=== PATIENT | female | born 1950 | race Caucasian/White ===

== ENCOUNTER → 2017-12-01 09:43 | Outpatient (CLI) | payer MEDICARE, BC, SELFPAY ==
[2017-12-01 12:13] LABS: Absolute Lymphocyte Count 1.19 X10^3/ul (0.83-4.51); Absolute Neutrophil Count 3.2 X10^3/uL (2.0-7.7); Basophil# 0.05 X10^3/uL; Eosinophil# 0.21 X10^3/uL; Eosinophils% 4.2 % (0-5); Hematocrit 40.3 % (37-47); Hemoglobin 12.9 g/dl (12.0-15.0); Lymphocyte # 1.19 X10^3/ul (4.0); Lymphocyte % 23.8 % (19-41); Mean Corpuscular Hgb 28.6 pg (27.0-32.0); Mean Corpuscular Volume 89.4 fL (81-99); Mean Platelet Vol. 13.1 fl (6.2-12.0); Monocyte# 0.33 X10^3/uL; Monocyte% 6.6 % (0-10); Neutrophil % 64.2 % (47-70); Platelet Count 204 K/mm3 (150-450); RBC Distribution Width CV 12.7 % (11.6-14.6); RBC Distribution Width SD 41.1 fl (35.1-43.9); Red Blood Count 4.51 M/mm3 (4.2-5.4)
[2017-12-01 12:17] LABS: POSITIVE COUNT NO; POSITIVE DIFFERENTIAL NO; POSITIVE MORPHOLOGY NO
[2017-12-01 12:46] LABS: Anion Gap 10 (5-15); BUN 23 mg/dL (7-18); BUN/Creat Ratio 13.9 RATIO (10-20); Calcium,Total 9.1 mg/dL (8.5-10.1); Chloride 107 mmol/L (98-107); Creatinine, Serum 1.65 mg/dL (0.55-1.02); EST Glomerular Filtration Rate 33 mL/min (>60); Est Glom Filt Rate - Afr Amer 40 mL/min (>60); Glucose 134 mg/dL (74-106); Potassium 4.6 mmol/L (3.5-5.1); Sodium Level 142 mmol/L (136-145); T4 Free Direct 1.36 ng/dL (0.76-1.46)
[2017-12-02 08:45] LABS: Hep C Antibodies <0.1 s/co ratio (0.0-0.9)
== END ==
PROVIDERS: Family Provider Family Medicine; PCP Family Medicine; Visit Provider Family Medicine
DX: E03.9 Hypothyroidism, unspecified (principal); E11.9 Type 2 diabetes mellitus without complications; N18.3 Chronic kidney disease, stage 3 (moderate); Z11.59 Encounter for screening for other viral diseases
CPT/HCPCS: 36415; 80048; 84439; 84443; 85025; 86803

== ENCOUNTER → 2018-05-27 14:14 | Outpatient (CLI) | payer MEDICARE, BC, SELFPAY ==
[2018-05-27 15:50] LABS: Anion Gap 9 (5-15); BUN 21 mg/dL (7-18); BUN/Creat Ratio 16.3 RATIO (10-20); Calcium,Total 9.2 mg/dL (8.5-10.1); Chloride 104 mmol/L (98-107); Creatinine, Serum 1.29 mg/dL (0.55-1.02); EST Glomerular Filtration Rate 44 mL/min (>60); Est Glom Filt Rate - Afr Amer 53 mL/min (>60); Glucose 214 mg/dL (74-106); Potassium 4.5 mmol/L (3.5-5.1); Sodium Level 138 mmol/L (136-145)
== END ==
PROVIDERS: Family Provider Family Medicine; PCP Family Medicine; Referring Provider Family Medicine; Visit Provider Family Medicine
DX: N18.3 Chronic kidney disease, stage 3 (moderate) (principal)
CPT/HCPCS: 36415; 80048

== ENCOUNTER → 2018-12-13 | Outpatient (CLI) | payer MEDICARE, BC, SELFPAY ==
[2018-12-13 12:49] LABS: Anion Gap 9 (5-15); BUN 19 mg/dL (7-18); BUN/Creat Ratio 13.3 RATIO (10-20); Chloride 107 mmol/L (98-107); Creatinine, Serum 1.43 mg/dL (0.55-1.02); EST Glomerular Filtration Rate 39 mL/min (>60); Est Glom Filt Rate - Afr Amer 47 mL/min (>60); Glucose 149 mg/dL (74-106); Potassium 4.2 mmol/L (3.5-5.1); Sodium Level 142 mmol/L (136-145); Thyroid Stim Hormone (TSH) 0.46 uIU/mL (0.358-3.74)
== END | disposition home or self-care (01) ==
LOC: BFHLAB 09:30
PROVIDERS: Family Provider Family Medicine; PCP Family Medicine; Visit Provider Family Medicine
DX: E11.65 Type 2 diabetes mellitus with hyperglycemia (principal); N18.3 Chronic kidney disease, stage 3 (moderate); E03.9 Hypothyroidism, unspecified
CPT/HCPCS: 36415; 80048; 84443

== ENCOUNTER → 2019-03-14 | Outpatient (CLI) | payer MEDICARE, BC, SELFPAY ==
[2019-03-14 15:32] LABS: Absolute Lymphocyte Count 1.42 X10^3/uL (0.83-4.51); Absolute Neutrophil Count 3.7 X10^3/uL (2.0-7.7); Basophil# 0.05 X10^3/uL; Basophil% 0.9 % (0-1); Eosinophil# 0.11 X10^3/uL; Eosinophils% 1.9 % (0-5); Hematocrit 40.6 % (37-47); Hemoglobin 13.3 g/dL (12.0-15.0); Lymphocyte # 1.42 X10^3/ul (4.0); Mean Corp Hgb Conc 32.8 g/dL (32-36); Mean Corpuscular Hgb 29.7 pg (27.0-32.0); Mean Corpuscular Volume 90.6 fL (81-99); Mean Platelet Vol. 12.7 fl (6.2-12.0); Monocyte# 0.41 X10^3/uL; Monocyte% 7.2 % (0-10); NRBC Flagged by Analyzer 0 % (0-5); Neutrophil # 3.67 X10^3/uL (2.7-7.7); Neutrophil % 64.8 % (47-70); Platelet Count 188 K/mm3 (150-450); RBC Distribution Width CV 11.9 % (11.6-14.6); RBC Distribution Width SD 39.5 fl (35.1-43.9); Red Blood Count 4.48 M/mm3 (4.2-5.4); White Blood Count 5.7 K/mm3 (4.4-11.0)
[2019-03-14 15:51] LABS: Vitamin B12 390 pg/mL (211-911)
[2019-03-14 15:54] LABS: ALB/GLOB Ratio 0.9 RATIO (0.9-2.4); AST(SGOT) 26 U/L (15-37); Alanine Aminotransfer ALT/SGPT 27 U/L (13-56); Albumin, Serum 3.6 g/dL (3.2-5.0); Alkaline Phosphatase 115 U/L (45-117); Anion Gap 8 (5-15); BUN 32 mg/dL (7-18); BUN/Creat Ratio 20.4 RATIO (10-20); Calcium,Total 9.4 mg/dL (8.5-10.1); Chloride 106 mmol/L (98-107); Creatinine, Serum 1.57 mg/dL (0.55-1.02); EST Glomerular Filtration Rate 35 mL/min (>60); Est Glom Filt Rate - Afr Amer 42 mL/min (>60); Globulin 3.8 g/dL (2.2-4.2); Glucose 204 mg/dL (74-106); Potassium 4.8 mmol/L (3.5-5.1); Protein, Total 7.4 g/dL (6.4-8.2); Sodium Level 140 mmol/L (136-145); T4 Free Direct 1.52 ng/dL (0.76-1.46); Thyroid Stim Hormone (TSH) 0.11 uIU/mL (0.358-3.74)
== END | disposition home or self-care (01) ==
LOC: BFHLAB 13:43
PROVIDERS: Family Provider Family Medicine; PCP Family Medicine; Visit Provider Family Medicine
DX: E11.65 Type 2 diabetes mellitus with hyperglycemia (principal); E03.9 Hypothyroidism, unspecified; R41.89 Other symptoms and signs involving cognitive functions and awareness
CPT/HCPCS: 36415; 80053; 82607; 84439; 84443; 85025

== ENCOUNTER → 2020-10-11 09:38 | Outpatient (CLI) | payer MEDICARE, BC, SELFPAY ==
[2020-10-11 12:49] LABS: Absolute Lymphocyte Count 1.11 X10^3/uL (0.83-4.51); Absolute Neutrophil Count 3.4 X10^3/uL (2.0-7.7); Basophil# 0.05 X10^3/uL; Eosinophil# 0.08 X10^3/uL; Eosinophils% 1.6 % (0-5); Hematocrit 43.6 % (37-47); Hemoglobin 13.5 g/dL (12.0-15.0); Lymphocyte # 1.11 X10^3/ul (4.0); Mean Corpuscular Hgb 28.5 pg (27.0-32.0); Mean Corpuscular Volume 92.2 fL (81-99); Mean Platelet Vol. 12.8 fl (6.2-12.0); Monocyte# 0.36 X10^3/uL; Monocyte% 7.1 % (0-10); NRBC Flagged by Analyzer 0 % (0-5); Neutrophil # 3.44 X10^3/uL (2.7-7.7); Neutrophil % 68.1 % (47-70); Platelet Count 202 K/mm3 (150-450); RBC Distribution Width CV 12.7 % (11.6-14.6); RBC Distribution Width SD 42.7 fl (35.1-43.9); Red Blood Count 4.73 M/mm3 (4.2-5.4); White Blood Count 5.1 K/mm3 (4.4-11.0)
[2020-10-11 13:33] LABS: ALB/GLOB Ratio 0.9 RATIO (0.9-2.4); AST(SGOT) 22 U/L (15-37); Alanine Aminotransfer ALT/SGPT 22 U/L (13-56); Albumin, Serum 3.7 g/dL (3.2-5.0); Alkaline Phosphatase 107 U/L (45-117); Anion Gap 7 (5-15); BUN 15 mg/dL (7-18); BUN/Creat Ratio 9.9 RATIO (10-20); Calcium,Total 9.2 mg/dL (8.5-10.1); Chloride 106 mmol/L (98-107); Cholesterol 160 mg/dL (200); Creatinine, Serum 1.51 mg/dL (0.55-1.02); EST Glomerular Filtration Rate 36 mL/min (>60); Est Glom Filt Rate - Afr Amer 44 mL/min (>60); Globulin 3.9 g/dL (2.2-4.2); Glucose 142 mg/dL (74-106); High Density Lipoprotein 48 mg/dL; Potassium 4.2 mmol/L (3.5-5.1); Protein, Total 7.6 g/dL (6.4-8.2); Sodium Level 140 mmol/L (136-145); T4 Free Direct 1.46 ng/dL (0.76-1.46); Thyroid Stim Hormone (TSH) 1.99 uIU/mL (0.358-3.74); Triglycerides 171 mg/dL; Very Low Density Lipoprotein 34 mg/dL (5-40)
== END ==
PROVIDERS: PCP Family Medicine; Visit Provider Family Medicine
DX: E11.65 Type 2 diabetes mellitus with hyperglycemia (principal); E11.22 Type 2 diabetes mellitus with diabetic chronic kidney disease; I12.9 Hypertensive chronic kidney disease with stage 1 through stage 4 chronic kidney disease, or unspecified chronic kidney disease; N18.30 Chronic kidney disease, stage 3 unspecified
CPT/HCPCS: 36415; 80053; 80061; 84439; 84443; 85025

== ENCOUNTER 2021-07-24 17:30 | Observation (INO) | payer MEDICARE, BC, SELFPAY ==
[2021-07-24] VITALS (10 sets, daily range): BP systolic 117–208; BP diastolic 70–98; PULSE 56–77; RESP 12–20; TEMP 36.4–37.1; O2SAT 95–100; BMI 31.8; BMI 33.0; BMI 33.1
--- NOTE | 2021-07-24 17:47 | EKG12_ITS ---
Test Reason : NEURO Blood Pressure : / mmHG Vent. Rate : 065 BPM Atrial Rate : 065 BPM P-R Int : 158 ms QRS Dur : 080 ms QT Int : 418 ms P-R-T Axes : 040 010 029 degrees QTc Int : 434 ms Normal sinus rhythm Normal ECG Confirmed by WILLY NAGY, LUIZ ([id number]), food editor BARB FREEMAN ([id number]) on 07/25/2021 11:39:07 AM Referred By: SATINDER Confirmed By:LUIZ AGUILERA MD
--- NOTE | 2021-07-24 17:54 | CT_ITS ---
STUDY: CT BRAIN WITHOUT CONTRAST REASON FOR EXAM: Female, 71 years old. Technologist Notes Other, DYSARHRIA 2-3 MINS HX:HTN,DIABETES NEURO S/S TECHNIQUE: Transaxial CT imaging of the brain was performed without administration of intravenous contrast material. Individualized dose optimization techniques were used for this CT. COMPARISON: None FINDINGS: Normal calvarium. Normal soft tissues. There are right basal ganglia old infarcts. There is mild cerebral atrophy with widening of the extra-axial spaces and ventricular dilatation. There are areas of decreased attenuation within the white matter tracts of the supratentorial brain, consistent with microvascular disease changes. Normal brainstem. Normal cerebellum. There is no intracranial hemorrhage. There are no findings of an acute ischemic infarction. Normal visualized paranasal sinuses. ASPECTS 10 CT/Brain/Head without Contrast IMPRESSION: There are no acute intracranial findings. Electronically Signed: Jonnathan Serna MD at 18:32 EST , Service support ,
[2021-07-24 18:04] LABS: Absolute Lymphocyte Count 1.96 X10^3/uL (0.83-4.51); Absolute Neutrophil Count 3.2 X10^3/uL (2.0-7.7); Basophil# 0.05 X10^3/uL; Basophil% 0.9 % (0-1); Eosinophil# 0.19 X10^3/uL; Eosinophils% 3.2 % (0-5); Hematocrit 42.6 % (37-47); Hemoglobin 13.9 g/dL (12.0-15.0); Lymphocyte # 1.96 X10^3/ul (0.83-4.51); Lymphocyte % 33.3 % (19-41); Mean Corp Hgb Conc 32.6 g/dL (32-36); Mean Corpuscular Volume 88.9 fL (81-99); Mean Platelet Vol. 12.3 fl (6.2-12.0); Monocyte# 0.44 X10^3/uL; Monocyte% 7.5 % (0-10); NRBC Flagged by Analyzer 0 % (0-5); Neutrophil # 3.22 X10^3/uL (2.7-7.7); Neutrophil % 54.8 % (47-70); Platelet Count 200 K/mm3 (150-450); RBC Distribution Width CV 12.1 % (11.6-14.6); RBC Distribution Width SD 39.7 fl (35.1-43.9); Red Blood Count 4.79 M/mm3 (4.2-5.4); White Blood Count 5.9 K/mm3 (4.4-11.0)
[2021-07-24 18:10] LABS: International Normalized Ratio 0.9; Prothrombin Time (Protime)PT. 11.7 SECONDS (11.7-14.9)
[2021-07-24 18:11] LABS: Partial Thromboplast Time 29.2 Seconds (24.1-36.2)
[2021-07-24 18:13] LABS: Anion Gap 6 (5-15); BUN 17 mg/dL (7-18); BUN/Creat Ratio 12.7 RATIO (10-20); Calcium,Total 9.6 mg/dL (8.5-10.1); Chloride 106 mmol/L (98-107); Creatinine, Serum 1.34 mg/dL (0.55-1.02); EST Glomerular Filtration Rate 42 mL/min (>60); Est Glom Filt Rate - Afr Amer 50 mL/min (>60); Estimated Creatinine Clearance 32.78 ml/min; Glucose 99 mg/dL (74-106); Potassium 3.9 mmol/L (3.5-5.1); Sodium Level 141 mmol/L (136-145)
--- NOTE | 2021-07-24 18:38 | ED.VIS.STROK ---
HPI History of Present Illness Chief Complaint: Neuro S/Sx Detail of Chief Complaint: Slurred speech and facial droop Informant: patient and spouse/S.O. Onset/Context/Timing Onset: Hours Context: Sudden Onset Timing: Intermittent (10 minutes) Quality and Location: Positive for Slurred Speech and Expressive Aphasia Onset: 1729 Current Severity: 0/10 Maximum Severity: Mild Worsened by: Nothing Relieved by: Nothing Associated Symptoms Associated Symptoms: Negative for Headache, Nausea, Vomiting and Chest Pain Narrative Narrative: Patient is an elderly woman with history of type 2 diabetes requiring insulin, hypothyroidism, hypertension, hypercholesterolemia and GERD who presents with slurred speech, mixed up words and facial droop patient nor can recall what site was asymmetric. She presently has no symptoms. She denies history of TIA or CVA Prior similar symptoms: No Recent Illness/Hospitalization: No [facility] Medical History (Updated 07/24/21 @ 20:[address] Yunier Machado MD) Diabetes Hypertension Hypothyroidism Home Medications Janumet XR 1 tab PO DAILY 09/21/16 [History Last Taken Unknown] Lantus Solostar U-100 Insulin 36 units SUBCUT QHS 09/21/16 [History Last Taken Unknown] aspirin 81 mg PO DAILY@0800 09/21/16 [History Last Taken Unknown] cholecalciferol (vitamin D3) 5,000 unit PO DAILY 09/21/16 [History Last Taken Unknown] ferrous sulfate [Iron] 325 mg PO DAILY 09/21/16 [History Last Taken Unknown] glipizide 5 mg PO DAILY 09/21/16 [History Last Taken Unknown] levothyroxine 112 mcg PO DAILY 09/21/16 [History Last Taken Unknown] lisinopril 5 mg PO DAILY 09/21/16 [History Last Taken Unknown] loratadine 10 mg PO QHS 09/21/16 [History Last Taken Unknown] pantoprazole 40 mg PO DAILY 09/21/16 [History Last Taken Unknown] simvastatin 20 mg PO QHS 09/21/16 [History Last Taken Unknown] Allergy/AdvReac Type Severity Reaction Status Date / Time No Known Allergies Allergy Verified 07/24/21 17:31 Social History (Updated 07/24/21 @ 18:[address] Yunier Machado MD) household members: spouse Smoking Status: Never smoker substance use type: does not use ROS ROS ED Constitutional Constitutional ED: Denies chills, fever(s), subjective, sweats or weakness Eyes Eyes: Denies blurry vision, change in vision or diplopia ENT ENT ED: Denies ear pain, rhinorrhea or sore throat Cardiovascular Cardiovascular: Denies chest pain, palpitations, paroxysmal nocturnal dyspnea or racing heartbeat Respiratory/Chest Respiratory/Chest: Denies cough, dyspnea, dyspnea on exertion, paroxysmal nocturnal dyspnea or sputum Gastrointestinal Gastrointestinal: Denies abdominal pain, diarrhea, nausea or vomiting Genitourinary Genitourinary ED: Denies dysuria, hematuria or urinary frequency Musculoskeletal Musculoskeletal: Denies arthralgias, back pain, myalgias or neck pain Integumentary Denies rash Neurologic Neurologic: Reports paresthesias; Denies headache(s) or weakness Psychiatric Psychiatric: Denies anxiety or depression Endocrine Endocrinology: Denies polydipsia, polyphagia or polyuria Hematologic/Lymphatic Hematologic/Lymphatic: Denies easy bleeding or easy bruising EXAM Physical Exam Const Vital Signs: 07/24/21 17:31 07/24/21 19:08 07/24/21 19:30 Temperature 98.6 F 97.5 F L Temperature Source Temporal Temporal Pulse Rate 73 66 56 L Respiratory Rate 18 16 12 Blood Pressure 208/98 H 166/83 H 190/75 H Blood Pressure Mean 134 110 113 Pulse Ox 100 97 97 Oxygen Delivery Method Room Air Room Air Room Air Positive well nourished and well developed General Appearance ED: well developed and NAD HEENT Reports TM's clear and moist mucous membranes atraumatic Tympanic Membrane ED: Yes TM's clear Eyes PERRL and EOMs intact bilaterally Eyes Narrative: There is no nystagmus with central or lateral gaze General Eye ED: Negative for pale conjunctiva or scleral icterus Neck no lymphadenopathy, supple and no JVD Resp normal respiratory effort and clear to auscultation bilaterally Cardio no murmurs Rate: regular rate Rhythm: regular rhythm Heart Sounds: S1 normal and S2 normal GI normal to inspection, nondistended, normoactive bowel sounds, soft to palpation and non-tender Back/Spine no CVA tenderness Cervical Spine: Negative for cervical spine tenderness Thoracic Spine / Upper Back: Negative for thoracic spinal tenderness Lumbar Spine / Lower Back: Negative for lumbar spinal tenderness Extremity normal to inspection General Extremety ED: Negative for deformity or tenderness General Extremity: Negative for deformity Neuro oriented x3, CN's II-XII intact bilaterally and no sensory deficits noted Jose Coma Scale: document GCS findings Spontaneous Obeys Commands Oriented 15 Sensorium / Orientation: alert Psych mental status grossly normal Skin no wounds General Skin Exam: Negative for jaundice Lesions: no lesions Rashes: no rashes STROKE Vital Signs/Narrative: Vital Signs Temp Pulse Resp BP Pulse Ox 07/24/21 19:30 97.5 F L 56 L 12 190/75 H 97 07/24/21 19:08 66 16 166/83 H 97 07/24/21 17:31 98.6 F 73 18 208/98 H 100 NIHSS Initial: 1a Level of Consciousness: 0 1b LOC Questions (Score 2 if aphasic/stupor): 0 1c LOC Commands (Only score 1st attempt): 0 2 Best Gaze (If aphasic, use reflexive mvmts.): 0 3 Visual: 0 4 Facial Palsy: 0 5 Motor Arm Right (UN = amputation/fusion): 0 5 Motor Arm Left: 0 6 Motor Leg Right: 0 6 Motor Leg Left: 0 7 Limb ataxia (Only + if out of proportion): 0 8 Sensory (Aphasia/stupor=0 or 1, coma=2): 0 9 Best Language: 0 10 Dysarthria (mute, coma=2, intubated=UN): 0 11 Extinction and Inattention (only scored if +): 0 Total Score: 0 MDM MDM MDM Narrative Medical decision making narrative: Patient presents with symptoms consistent with TIA. Suspect last hemispheric since speech center was a factor. CT of the head was negative. Blood work is remarkable for elevated creatinine 1.34. Glucose is normal. Will page hospitalist for admission for further work-up. Blood pressure is elevated. Would not treat at this time will allow for permissive elevated blood pressure Lab Data Attestation: I reviewed the patient's lab results. Labs: Laboratory Results - last 24 hr 07/24/21 07/24/21 07/24/21 17:40 17:40 17:40 WBC 5.9 RBC 4.79 Hgb 13.9 Hct 42.6 MCV 88.9 MCH 29.0 MCHC 32.6 RDW Std Deviation 39.7 RDW Coeff of Concetta 12.1 Plt Count 200 MPV 12.3 H Immature Gran % (Auto) 0.300 Neut % (Auto) 54.8 Lymph % (Auto) 33.3 [place] % (Auto) 7.5 Eos % (Auto) 3.2 Baso % (Auto) 0.9 Absolute Neuts (auto) 3.2 Absolute Lymphs (auto) 1.96 Nucleated RBC % 0 PT 11.7 INR 0.9 APTT 29.2 Sodium 141 Potassium 3.9 Chloride 106 Carbon Dioxide 29.0 Anion Gap 6 BUN 17 Creatinine 1.34 H Estim Creat Clear Calc 32.78 Est GFR (MDRD) Af Amer 50 L Est GFR (MDRD) Non-Af 42 L BUN/Creatinine Ratio 12.7 Glucose 99 Calcium 9.6 Radiography Diagnostic Testing: Clinical Impression(s) from Imaging Studies Brain CT 07/24/21 17:54 IMPRESSION: There are no acute intracranial findings. Electronically Signed: Jonnathan Serna MD at 18:32 EST , Service support , Stroke Documentation Questions Stroke Team Activated: No Reviewed Inclusion/Exclusion criteria: No Was Patient considered for Endovascular Intervention?: No IV Alteplase (t-PA) Administered: No No contraindications for IV Alteplase (t-PA) administration.: Yes Alteplase (t-PA) risks, benefits, alternative discussed: No Discharge Plan Dx/Rx/DC Orders Clinical Impression: Brain TIA, Facial droop, Dysarthria due to acute stroke, Chronic kidney insufficiency, BP (high blood pressure) Disposition Disposition: Acute Care [facility]
--- NOTE | 2021-07-24 20:25 | HP.PCM.HOS_ITS ---
HPI - General General Date of Admission: 07/24/21 HPI Narrative HARRY HILL, is a 71 F with a significant history of diabetes mellitus; hypertension; hypothyroidism who presents to the emergency department with slurred speech that started about an hour and 15 minutes prior to presentation. Associated with her symptoms is a facial droop that her noted. is unable to say whether the facial droop watch her left side all to the right side of the face. Her facial droop and slurred speech lasted for about 10 to 15 minutes and then it resolved. She denies any weakness in extremities. She denies any changes in her vision. She denies nausea, vomiting or diarrhea. She denies shortness of breath. She denies headache. [facility]LY [facility] Medical History Diabetes Hypertension Hypothyroidism Home Medications Janumet XR 1 tab PO DAILY 09/21/16 [History Last Taken Unknown] Lantus Solostar U-100 Insulin 36 units SUBCUT QHS 09/21/16 [History Last Taken Unknown] aspirin 81 mg PO DAILY@0800 09/21/16 [History Last Taken Unknown] cholecalciferol (vitamin D3) 5,000 unit PO DAILY 09/21/16 [History Last Taken Unknown] ferrous sulfate [Iron] 325 mg PO DAILY 09/21/16 [History Last Taken Unknown] glipizide 5 mg PO DAILY 09/21/16 [History Last Taken Unknown] levothyroxine 112 mcg PO DAILY 09/21/16 [History Last Taken Unknown] lisinopril 5 mg PO DAILY 09/21/16 [History Last Taken Unknown] loratadine 10 mg PO QHS 09/21/16 [History Last Taken Unknown] pantoprazole 40 mg PO DAILY 09/21/16 [History Last Taken Unknown] simvastatin 20 mg PO QHS 09/21/16 [History Last Taken Unknown] Allergy/AdvReac Type Severity Reaction Status Date / Time No Known Allergies Allergy Verified 07/24/21 17:31 Family History Mother Diabetes Mother Heart disease Father Cancer Surgical History H/O lumpectomy H/O: hysterectomy Hx of appendectomy Social History household members: spouse Smoking Status: Never smoker substance use type: does not use ROS ROS Narrative Constitutional: Denies fever, chills, fatigue, anorexia and change in weight Eyes: Denies blurry vision, change in eye color, change in vision, discharge from eye(s), double vision, erythema, eye pain, loss of vision or other HEENT: Denies abnormal hearing, dysphagia, ear pain, epistaxis, headache(s), hearing loss, nasal congestion, nasal discharge, post nasal drip, sinus pressure, sore throat or other Cardiovascular: Denies chest pain or palpitations. Denies dyspnea on exertion, orthopnea and paroxysmal nocturnal dyspnea Respiratory/Chest: Denies cough, excessive phlegm production, shortness of breath with exertion and wheezing Gastrointestinal: Denies abdominal pain, coffee ground emesis, constipation, diarrhea, dyspepsia, hematemesis, hematochezia, loose stools, melena, nausea, vomiting or other Genitourinary: Denies burning urination, difficulty urinating, dysuria, hematuria, nocturia, urinary frequency, urinary hesitancy, urinary incontinence, urinary urgency or other Musculoskeletal: Denies arthralgias, back pain, joint pain, joint stiffness, joint swelling, myalgias, neck pain or other Neurologic: Reported slurred speech. Reported facial droop. Denies abnormal gait, confusion, disequilibrium, dizziness, headache(s), numbness, paresthesias, seizure-like activity, seizures, syncope, tingling, tremor(s) or other Psychiatric: Denies anxiety, depression, homicidal ideation, suicidal ideation or other Endocrinology: Denies change in body appearance, cold intolerance, excessive sweating, heat intolerance, polydipsia, polyuria or other Hematologic/Lymphatic: Denies anemia, easy bleeding, easy bruising, lymphadenopathy or other Integumentary: Denies rashes Allergic/Immunologic: Denies rhinitis, hives, eczema, asthma or other Vital Signs Vital Signs Vital Signs: 07/24/21 17:31 07/24/21 19:08 07/24/21 19:30 Temperature 98.6 F 97.5 F L Temperature Source Temporal Temporal Pulse Rate 73 66 56 L Respiratory Rate 18 16 12 Blood Pressure 208/98 H 166/83 H 190/75 H Blood Pressure Mean 134 110 113 Pulse Ox 100 97 97 Oxygen Delivery Method Room Air Room Air Room Air 07/24/21 20:23 Temperature 97.5 F L Temperature Source Temporal Pulse Rate 56 L Respiratory Rate 12 Blood Pressure 190/75 H Blood Pressure Mean 113 Pulse Ox 97 Oxygen Delivery Method Room Air Weight Weight: 84.7 kg Body Mass Index (BMI) 33.0 Physical Exam Narrative Physical exam: General: Well-nourished, well-developed. Head: Normocephalic, atraumatic, no tenderness Eyes: PERRLA, EOMI ENT, no trauma, moist mucous membranes, no rhinorrhea Neck: Nontender, full range of motion, no spinal tenderness, deformities, step- off CVS: Regular rate and rhythm. S1-S2 present. No murmur, gallop or rub. Respiratory : clear to auscultation bilaterally, chest wall nontender, no wheez ing Abdomen: Soft, nontender, nondistended, normal bowel sounds, no masses : Deferred Back: Nontender, no CVA tenderness, no midline spinal tenderness, deformities, step-offs Extremities: Nontender full range of motion, no trauma Skin: Normal color, no trauma, abrasions Neuro: Alert, oriented, cranial nerves II through XII grossly intact. No dysmetria. Strength 5 out of 5 throughout. Psychiatry: Normal mood. Normal affect. Not depressed. Not anxious. Results Lab / Micro Data Result Diagrams: 07/25/21 05:50 07/25/21 05:50 Labs: Laboratory Results - last 24 hr 07/24/21 17:40: WBC 5.9, RBC 4.79, Hgb 13.9, Hct 42.6, MCV 88.9, MCH 29.0, MCHC 32.6, RDW Std Deviation 39.7, RDW Coeff of Concetta 12.1, Plt Count 200, MPV 12.3 H, Immature Gran % (Auto) 0.300, Neut % (Auto) 54.8, Lymph % (Auto) 33.3, [place] % (Auto) 7.5, Eos % (Auto) 3.2, Baso % (Auto) 0.9, Absolute Neuts (auto) 3.2, Absolute Lymphs (auto) 1.96, Nucleated RBC % 0 07/24/21 17:40: PT 11.7, INR 0.9, APTT 29.2 07/24/21 17:40: Sodium 141, Potassium 3.9, Chloride 106, Carbon Dioxide 29.0, Anion Gap 6, BUN 17, Creatinine 1.34 H, Estim Creat Clear Calc 32.78, Est GFR (MDRD) Af Amer 50 L, Est GFR (MDRD) Non-Af 42 L, BUN/Creatinine Ratio 12.7, Glucose 99, Calcium 9.[address] 07/24/21 17:54 IMPRESSION: There are no acute intracranial findings. Electronically Signed: Jonnathan Serna MD at 18:32 EST , Service support , Assessment & Plan Assessment/Plan (1) Brain TIA: PLAN: TIA Serial NINDS NIH Scale ordered Impression of head CT by radiology: Upon my personal head CT image review: I agree with radiologist interpretation Lipid profile and A1c ordered. Physical therapy, occupational therapy and speech therapy to work with patient. N.p.o. until bedside swallow eval. Daily aspirin. High intensity statin Permissive hypertension. Control blood pressure with labetalol for systolic blood pressure of more than 220 or diastolic blood pressure of more than 120. MRI/MRA of head; brain; and neck. Review of CBC showed normal white counts; platelets and hemoglobin. Echocardiogram ordered. Diabetes mellitus BMP on presentation blood glucose of 99. Hold home oral hypoglycemic medications and long-acting insulin. Accu-Chek with correction scale insulin ordered. Hypertension Blood pressure is stable in regard to her age. In the setting of TIA hold home lisinopril; and allow for permissive hypertension.. Trend blood pressures. DVT prophylaxis: SCDs ordered. Charges/Coding Visit Charges OBSV E&M: 12201 Initial observation care L2
--- NOTE | 2021-07-24 21:30 | ECHOD_ITS ---
Reason For Study: TIA/CVA Procedure This was a 2D Doppler, Color Flow transthoracic echocardiogram. Exam performed portable in patient room. Left Ventricle Normal left ventricle. The estimated ejection fraction is 55-60 %. Right Ventricle Normal right ventricle. Normal systolic function. Atria Normal left atrium. Normal right atrium. Intact atrial septum. Mitral Valve There is mild mitral annular calcification. Trivial mitral valve insufficiency. Tricuspid Valve Normal tricuspid valve. No tricuspid valve insufficiency. Aortic Valve Aortic sclerosis, no stenosis. No aortic valve insufficiency. Pulmonic Valve The pulmonic valve is not well visualized. Great Vessels Normal aortic root. Pericardium/Pleural No pericardial effusion. Medication Performed a rapid injection of agitated mix of 9 cc saline and 1cc air to assess for atrial septal defect. MMode/2D Measurements & Calculations LVIDd: 4.0 cm IVSd: 1.2 cm Ao root diam: 3.2 cm LVIDs: 2.4 cm LVPWd: 1.0 cm RVDd: 3.5 cm FS: 39.9 % LAV(MOD-bp): 30.9 ml LVAd ap4: 25.6 cm2 LVAd ap2: 19.9 cm2 LAV(MOD-bp) Indexed: 16.7 ml/m2 LVLd ap4: 7.6 cm LVLd ap2: 7.3 cm LAV(MOD-sp2): 28.4 ml EDV(MOD-sp4): 70.0 ml EDV(MOD-sp2): 47.5 ml LAV(MOD-sp4): 31.2 ml EDV(sp4-el): 72.9 ml EDV(sp2-el): 46.1 ml LVAs ap4: 16.1 cm2 LVAs ap2: 12.6 cm2 LVLs ap4: 6.8 cm LVLs ap2: 6.7 cm ESV(MOD-sp4): 33.2 ml ESV(MOD-sp2): 21.7 ml ESV(sp4-el): 32.6 ml ESV(sp2-el): 20.1 ml EF(MOD-sp4): 52.6 % EF(MOD-sp2): 54.4 % EF(sp4-el): 55.3 % SV(MOD-sp4): 36.8 ml SV(MOD-sp2): 25.8 ml SV(sp4-el): 40.3 ml LA A4 area: 13.6 cm2 LA dimension(2D): 3.5 cm RA A4 area: 10.3 cm2 Doppler Measurements & Calculations MV E max cesar: 53.3 cm/sec Lat Peak E' Cesar: 4.5 cm/sec Med Peak E' Cesar: 3.6 cm/sec MV A max cesar: 102.4 cm/sec E/E' lat: 11.8 E/E' med: 14.7 MV E/A: 0.52 Ao V2 max: 126.1 cm/sec LV V1 max: 95.4 cm/sec PA V2 max: 88.4 cm/sec Ao max P.4 mmHg LV V1 max P.6 mmHg TR max cesar: 191.1 cm/sec TR max P.6 mmHg ECHO/Echo Complete Interpretation Summary The estimated ejection fraction is 55-60 %. Normal LV systolic function Grade # I Diastolic function Trivial MR Negative Buble study . No prior echo to compare Ordering Physician: Aman Ferrera Referring Physician: Declan Curry Performed By: Letty Anderson RDCS
--- NOTE | 2021-07-24 21:36 | PCS.PANDOC ---
PANDEMIC DOCUMENTATION INITIATED: Date: 03/31/2021 Time: 190
[2021-07-24] MEDS: Atorvastatin Calcium 80 MG Tablet PO (23:46)
[2021-07-24] MEDS: Loratadine 10 MG Tablet PO (23:46)
[2021-07-25] VITALS (8 sets, daily range): BP systolic 120–154; BP diastolic 65–81; PULSE 62–79; RESP 16; TEMP 36.6–37; O2SAT 93–97; BMI 33.1
[2021-07-25 00:15] LABS: Bedside Glucose 369 mg/dL (70-110)
[2021-07-25] MEDS: Levothyroxine 112 MCG Tablet PO (05:53)
[2021-07-25 06:23] LABS: Absolute Lymphocyte Count 1.37 X10^3/uL (0.83-4.51); Absolute Neutrophil Count 3.9 X10^3/uL (2.0-7.7); Basophil# 0.05 X10^3/uL; Basophil% 0.8 % (0-1); Eosinophil# 0.18 X10^3/uL; Hematocrit 38.1 % (37-47); Hemoglobin 12.4 g/dL (12.0-15.0); Lymphocyte # 1.37 X10^3/ul (0.83-4.51); Lymphocyte % 22.7 % (19-41); Mean Corp Hgb Conc 32.5 g/dL (32-36); Mean Platelet Vol. 12.2 fl (6.2-12.0); Monocyte# 0.53 X10^3/uL; Monocyte% 8.8 % (0-10); NRBC Flagged by Analyzer 0 % (0-5); Neutrophil % 64.5 % (47-70); Platelet Count 185 K/mm3 (150-450); RBC Distribution Width CV 12.2 % (11.6-14.6); RBC Distribution Width SD 39.8 fl (35.1-43.9); Red Blood Count 4.28 M/mm3 (4.2-5.4)
[2021-07-25] MEDS: Insulin Lispro 100 UNIT/ML INSULN.PEN SC ×3 (06:44→11:21)
[2021-07-25 06:50] LABS: Bedside Glucose 215 mg/dL (70-110)
[2021-07-25 06:57] LABS: ALB/GLOB Ratio 0.8 RATIO (0.9-2.4); AST(SGOT) 18 U/L (15-37); Alanine Aminotransfer ALT/SGPT 19 U/L (13-56); Alkaline Phosphatase 103 U/L (45-117); Anion Gap 6 (5-15); BUN 17 mg/dL (7-18); BUN/Creat Ratio 13.3 RATIO (10-20); Chloride 105 mmol/L (98-107); Cholesterol 134 mg/dL (200); Creatinine, Serum 1.28 mg/dL (0.55-1.02); EST Glomerular Filtration Rate 44 mL/min (>60); Est Glom Filt Rate - Afr Amer 53 mL/min (>60); Estimated Creatinine Clearance 32.81 ml/min; Globulin 3.8 g/dL (2.2-4.2); Glucose 228 mg/dL (74-106); High Density Lipoprotein 47 mg/dL; Potassium 4.2 mmol/L (3.5-5.1); Protein, Total 6.8 g/dL (6.4-8.2); Sodium Level 138 mmol/L (136-145); Triglycerides 124 mg/dL; Very Low Density Lipoprotein 25 mg/dL (5-40)
[2021-07-25] MEDS: Aspirin E.C. 81 MG Tablet PO (08:29)
[2021-07-25] MEDS: Clopidogrel Bisulfate 75 MG Tablet PO (08:29)
[2021-07-25] MEDS: Cholecalciferol (VIT D3) 25 MCG TABLET (1,000 UNITS) 125 MCG PO (08:30)
[2021-07-25] MEDS: Pantoprazole Sodium 40 MG Tablet PO (08:30)
--- NOTE | 2021-07-25 09:05 | TELEMED_ITS ---
[facility] Telemed has confirmed receipt of a request for visit. This document confirms receipt of the order initiating the consult. To find the results of the consultation, please view the patient's reports for the scanned Telemed Consult.
--- NOTE | 2021-07-25 09:30 | MRI_ITS ---
STUDY: MRI BRAIN WITHOUT CONTRAST REASON FOR EXAM: Female, 71 years old. TIA TECHNIQUE: Standardized multiplanar fat and water weighted pulse sequences were obtained. COMPARISON: None. FINDINGS: There is moderate cerebral atrophy with widening of the extra-axial spaces and ventricular dilatation. There are a limited number of small white matter hyperintensities, distributed throughout the deep white matter tracts of the cerebral hemispheres, consistent with mild chronic white matter ischemic changes. There is no evidence for recent intracranial ischemia or other cause of cytotoxic edema on diffusion weighted imaging (DWI). Normal T2* images of the brain without demonstrated susceptibility artifact. There is no demonstrated hemosiderin stain. Chronic lacunar infarct of the right caudate nucleus and right putamen. Normal thalami. There is no extra-axial fluid accumulation. Normal flow voids within the major intracranial circulation suggesting patency by spin echo criteria. Normal sella turcica, pituitary gland, infundibular stalk, optic chiasm and hypothalamus. Normal tectal plate and pineal gland. Normal midbrain, mustapha and medulla. Normal cerebellum. Normal basal cisterns. Normal bilateral temporal bones. Normal bilateral internal auditory canals. No demonstrated orbital abnormality, within the constraints of a routine brain study. Normal visualized paranasal sinuses. Normal calvarium and skull base. Normal visualized soft tissue structures. Normal visualized upper cervical spine. MRI/Brain without Contrast IMPRESSION: Involutional changes of the brain, as described above. No acute infarct. Electronically Signed: Eyad Brenner MD at 11:18 EST Tel , Service support ,
--- NOTE | 2021-07-25 09:30 | MRI_ITS ---
STUDY: MRA NECK WITHOUT CONTRAST REASON FOR EXAM: Female, 71 years old. tia TECHNIQUE: Source images were obtained, MIPs were performed. The study was performed unenhanced. COMPARISON: None. FINDINGS: RIGHT CAROTID ARTERIES: Normal right common carotid artery (CCA). Normal right common carotid bulb. Normal origin of the right internal carotid (ICA) artery without a hemodynamically significant stenosis. Normal visualized cervical portion of the right internal carotid artery. Normal origin of the right external carotid artery (ECA). LEFT CAROTID ARTERIES: Normal left common carotid artery (CCA). Normal left common carotid bulb. Normal origin of the left internal carotid (ICA) artery without a hemodynamically significant stenosis. Normal visualized cervical portion of the left internal carotid artery. Normal origin of the left external carotid artery (ECA). VERTEBRAL ARTERIES: Normal antegrade flow within the bilateral vertebral artery without a hemodynamically significant stenosis. MRI/MRA Neck without Contrast IMPRESSION: Normal bilateral cervical carotid and vertebral arteries. Electronically Signed: Eyad Brenner MD at 11:19 EST Tel , Service support ,
--- NOTE | 2021-07-25 09:30 | MRI_ITS ---
STUDY: MRA OF THE HEAD WITHOUT CONTRAST REASON FOR EXAM: Female, 71 years old. TIA TECHNIQUE: 3-D [id number] (TOF) imaging was performed with MIPs. The study was performed unenhanced. COMPARISON: None. FINDINGS: Normal bilateral petrous carotid arteries. Normal right cavernous carotid artery with a normal supraclinoid bifurcation. Normal left cavernous carotid artery with a normal supraclinoid bifurcation. Normal right A1 segments of the anterior cerebral artery. There is hypoplastic development of the left A1 segment of the anterior cerebral arteries with an atretic but intact artery. Normal intact anterior communicating artery (ACOM). Normal bilateral A2 segments of the anterior cerebral arteries. Normal right M1 and M2 segments of the middle cerebral arteries, with a normal M1 bifurcation. Normal left M1 and M2 segments of the middle cerebral arteries, with a normal M1 bifurcation. Normal right posterior communicating artery (PCOM). Normal left posterior communicating artery (PCOM). There is a small atretic left vertebral artery with a dominant right vertebral artery. Normal basilar artery with a normal basilar bifurcation. The visualized bilateral superior cerebellar (SCA) arteries are normal. Normal bilateral P1, P2 and visualized P3 segments of the posterior cerebral arteries. There is no demonstrated aneurysm of the [place] of [place]. There is no major vessel occlusion or hemodynamically significant stenosis. There is no demonstrated abnormality of the visualized brain. MRI/MRA Head ONLY without Contrast IMPRESSION: Normal MRA of the head Electronically Signed: Eyad Brenner MD at 11:19 EST Tel , Service support ,
[2021-07-25] MEDS: Ferrous Sulfate 325 MG Tablet PO (11:22)
--- NOTE | 2021-07-25 11:24 | PCM.DC ---
Discharge Instructions Diet Discharge Diet: No restrictions Activity Discharge Activity: Return to Normal Activity Weight Bearing Status: Weight bearing as tolerated Dressing / Incision Call your doctor if you observe: Fever of 101 or Higher, Numbness or Tingling, Shortness of breath, Dizziness, Chest pain, Increased palpitations (irregular heartbeat) and Calf discomfort Follow Up Care Please Follow Up With: Primary care provider When: Within the next two weeks. Test Results: Test results from this visit will be discussed in further detail at your follow-up appointment, if applicable. Discharge Plan Admission Admit Date/Time: 07/24/21 20:15 Primary Reason for Your Visit: Stroke like symptoms. Attending Provider: Veena Martinez Primary Care Provider: Declan Curry Discharge Orders/Prescriptions Prescriptions: New atorvastatin [Lipitor] 80 mg tablet 80 mg PO QHS Qty: 30 RF: 0 clopidogrel [Plavix] 75 mg tablet 75 mg PO DAILY Qty: 30 RF: 0 Continued pantoprazole 40 MG tablet 40 mg PO DAILY RF: 0 ferrous sulfate [Iron (ferrous sulfate)] 325 MG tablet 325 mg PO DAILY RF: 0 lisinopril 5 MG tablet 5 mg PO DAILY RF: 0 cholecalciferol (vitamin D3) 5,000 UNIT capsule 5,000 unit PO DAILY RF: 0 loratadine 10 MG tablet 10 mg PO QHS RF: 0 glipizide 5 MG tablet 5 mg PO DAILY RF: 0 levothyroxine 112 MCG tablet 112 mcg PO DAILY RF: 0 Lantus Solostar U-100 Insulin 100 UNITS/ML insulin pen 36 units subcut QHS RF: 0 Janumet XR 1 EACH tablet, ER multiphase 24 hr 1 tab PO DAILY RF: 0 aspirin 81 MG tablet 81 mg PO DAILY@0800 Qty: 0 RF: 0 Discontinued simvastatin 20 MG tablet 20 mg PO QHS RF: 0 Other Ambulatory Orders: 30-Day Event Recorder (Routine) Location: None Selected Ordered By: Chago REED Referrals / Follow Up: Declan Curry MD [Primary Care Provider] - Within 2 Weeks Hudson Bear MD [STAFF PHYSICIAN] - See Referral Note (Follow up with Dr. Bear for your event monitor results. ) Disposition Disposition (needs filled in before D/C Order can be placed): Home, Self Care
[2021-07-25 11:28] LABS: Hemoglobin A1c 9.3 % (3.8-5.6)
--- NOTE | 2021-07-25 11:28 | CASEMGMT ---
Per therapy, pt has no need for any further therapy at d/c, back to baseline. Pt voices no further questions/concerns/needs. Silvia SANCHEZ CM
[2021-07-25 11:45] LABS: Bedside Glucose 252 mg/dL (70-110)
--- NOTE | 2021-07-25 12:00 | PHA.DC.MR ---
Pharmacy Service has performed discharge medication reconciliation for this patient. The patient's discharge medication list was reviewed for discrepancies and discrepancies were resolved. Home Medications Janumet XR 1 tab PO DAILY 09/21/16 Lantus Solostar U-100 Insulin 36 units SUBCUT QHS 09/21/16 aspirin 81 mg PO DAILY@0800 09/21/16 cholecalciferol (vitamin D3) 5,000 unit PO DAILY 09/21/16 ferrous sulfate [Iron (ferrous sulfate)] 325 mg PO DAILY 09/21/16 glipizide 5 mg PO DAILY 09/21/16 levothyroxine 112 mcg PO DAILY 09/21/16 lisinopril 5 mg PO DAILY 09/21/16 loratadine 10 mg PO QHS 09/21/16 pantoprazole 40 mg PO DAILY 09/21/16 simvastatin 20 mg PO QHS 09/21/16
--- NOTE | 2021-07-25 12:54 | CASEMGMT ---
SW met with patient. Introduced self and role at [facility]. Patient was agreeable to SW completing the PHQ 9 with her due to possible TIA. Her was present and she was okay with him being present during process. Patient scored a 0 which indicates no depression. Patient declined any need for counseling resources. Indy WOLFF
--- NOTE | 2021-07-25 14:08 | DS.PCM_ITS ---
Documented by User: Chago REED 07/25/21 14:18 Providers Date of Admission: 07/24/21 Primary Care Physician: Dr. Declan Curry MD Reason For Visit: TIA Diagnosis Discharge Diagnosis (1) Brain TIA: Status: Acute Code(s): G45.9 - Transient cerebral ischemic attack, unspecified Medications at Discharge Home Medications Janumet XR 1 tab PO DAILY 09/21/16 Lantus Solostar U-100 Insulin 36 units SUBCUT QHS 09/21/16 cholecalciferol (vitamin D3) 5,000 unit PO DAILY 09/21/16 ferrous sulfate [Iron (ferrous sulfate)] 325 mg PO DAILY 09/21/16 glipizide 5 mg PO DAILY 09/21/16 levothyroxine 112 mcg PO DAILY 09/21/16 lisinopril 5 mg PO DAILY 09/21/16 loratadine 10 mg PO QHS 09/21/16 pantoprazole 40 mg PO DAILY 09/21/16 aspirin 81 mg PO DAILY@0800 #0 tab 07/25/21 atorvastatin [Lipitor] 80 mg PO QHS #30 tab 07/25/21 clopidogrel [Plavix] 75 mg PO DAILY #30 tab 07/25/21 Hospital Course Procedures 2-D Echocardiogram and Transthoracic echo Summary of Care Provided Minutes Spent on Discharge: 35 Hospital Course: Patient is a 71-year-old female who presented to the ED on 07/24/2021 with a chief complaint of slurred speech that lasted about 15 minutes. Patient was admitted for evaluation and management of strokelike symptoms. Imaging to include brain CT, brain MRI and head/neck MRS did not demonstrate any evidence of acute ischemia, infarction or stenosis. Echocardiogram was obtained and demonstrated an EF of 55 to 60%, normal LV systolic function and grade 1 diastolic dysfunction with negative bubble study. [facility] telemetry [place] ology service was contacted who believes the patient did suffer a transient ischemic attack. Recommendations are to initiate dual antiplatelet therapy for 21 days, and to continue with Plavix thereafter, increase simvastatin to higher intensity statin and further control of blood pressure and diabetes. Patient's hemoglobin A1c was obtained and was found to be 9.3. Patient will follow up with her primary care provider for further adjustment of home diabetic regimen. A 30-day event monitor will also be established for patient to assess for paroxysmal atrial fibrillation. Patient is to follow-up with Dr. Bear for interpretation of event monitor. PT/OT evaluated patient and did not find any further need for skilled therapy. Patient's simvastatin was discontinued on recommendation from neurology, Lipitor 80 mg nightly was initiated, all other home medications were continued. Patient is to initiate Plavix and continue aspirin for 21 days. Patient will stop taking aspirin on August 16 and continue with Plavix thereafter. Patient to discharge home with appropriate follow-up as above. Patient seen by Chago Posey PA-C, under the supervision of Dr. Martinez. Physical Exam Narrative Patient is a 71-year-old female comfortably resting in a chair, alert and orient x3. Patient reports resolution of her slurred speech and aphasia from admission. Does not complain of nor does she display any focal neurological deficits. Denies development of any new symptoms overnight. Does not appear in acute distress. Const alert, oriented x3 and no apparent distress HEENT normocephalic, head/scalp atraumatic and hearing grossly normal bilaterally Eyes PERRL, EOMs intact bilaterally and conjunctivae normal Neck no lymphadenopathy, supple and no JVD Resp normal respiratory effort, no retractions, no use of accessory muscles and clear to auscultation bilaterally Cardio regular rate, regular rhythm, no murmurs and no JVD GI normal to inspection, nondistended, normoactive bowel sounds, soft to palpation and non-tender Extremity normal to inspection, full ROM and no clubbing, cyanosis or edema Skin no rashes or lesions noted, no wounds and skin turgor normal Neuro CN's II-XII intact bilaterally Psych affect normal Weight / BMI Weight Weight: 181 lb 3.52 oz Body Mass Index (BMI) 33.1 ABG / Lab / Microbiology Data Result Diagrams: 07/25/21 05:50 07/25/21 05:50 Laboratory: Laboratory Results - last 24 hr 07/24/21 17:40: WBC 5.9, RBC 4.79, Hgb 13.9, Hct 42.6, MCV 88.9, MCH 29.0, MCHC 32.6, RDW Std Deviation 39.7, RDW Coeff of [place] 12.1, Plt Count 200, MPV 12.3 H, Immature Gran % (Auto) 0.300, Neut % (Auto) 54.8, Lymph % (Auto) 33.3, [place] % (Auto) 7.5, Eos % (Auto) 3.2, Baso % (Auto) 0.9, Absolute Neuts (auto) 3.2, Absolute Lymphs (auto) 1.96, Nucleated RBC % 0 07/24/21 17:40: PT 11.7, INR 0.9, APTT 29.2 07/24/21 17:40: Sodium 141, Potassium 3.9, Chloride 106, Carbon Dioxide 29.0, Anion Gap 6, BUN 17, Creatinine 1.34 H, Estim Creat Clear Calc 32.78, Est GFR (MDRD) Af Amer 50 L, Est GFR (MDRD) Non-Af 42 L, BUN/Creatinine Ratio 12.7, Glucose 99, Calcium 9.6 07/24/21 23:59: POC Glucose 369 H 07/25/21 05:50: WBC 6.0, RBC 4.28, Hgb 12.4, Hct 38.1, MCV 89.0, MCH 29.0, MCHC 32.5, RDW Std Deviation 39.8, RDW Coeff of [place] 12.2, Plt Count 185, MPV 12.2 H, Immature Gran % (Auto) 0.200, Neut % (Auto) 64.5, Lymph % (Auto) 22.7, [place] % (Auto) 8.8, Eos % (Auto) 3.0, Baso % (Auto) 0.8, Absolute Neuts (auto) 3.9, Absolute Lymphs (auto) 1.37, Nucleated RBC % 0 07/25/21 05:50: Sodium 138, Potassium 4.2, Chloride 105, Carbon Dioxide 27.0, Anion Gap 6, BUN 17, Creatinine 1.28 H, Estim Creat Clear Calc 32.81, Est GFR (MDRD) Af Amer 53 L, Est GFR (MDRD) Non-Af 44 L, BUN/Creatinine Ratio 13.3, Glucose 228 H, Calcium 9.0, Total Bilirubin 0.40, AST 18, ALT 19, Alkaline Phosphatase 103, Total Protein 6.8, Albumin 3.0 L, Globulin 3.8, Albumin/Globulin Ratio 0.8 L, Triglycerides 124, Cholesterol 134, LDL Cholesterol 62, VLDL Cholesterol 25, HDL Cholesterol 47 07/25/21 05:55: Hemoglobin A1c 9.3 H 07/25/21 06:42: POC Glucose 215 H 07/25/21 11:18: POC Glucose 252 H Radiography Diagnostic Testing: Radiology Impression Brain CT 07/24/21 17:54 IMPRESSION: There are no acute intracranial findings. Electronically Signed: Jonnathan Serna MD at 18:32 EST , Service support , Echocardiogram 07/24/21 21:30 Interpretation Summary The estimated ejection fraction is 55-60 %. Normal LV systolic function Grade # I Diastolic function Trivial MR Negative Buble study . No prior echo to compare Ordering Physician: Aman Ferrera Referring Physician: Declan Curry Performed By: Letty Anderson RDCS Brain MRI 07/25/21 09:30 IMPRESSION: Involutional changes of the brain, as described above. No acute infarct. Electronically Signed: Eyad Brenner MD at 11:18 EST Tel , Service support , Head MRA 07/25/21 09:30 IMPRESSION: Normal MRA of the head Electronically Signed: Eyad Brenner MD at 11:19 EST Tel , Service support , Neck MRA 07/25/21 09:30 IMPRESSION: Normal bilateral cervical carotid and vertebral arteries. Electronically Signed: Eyad Brenner MD at 11:19 EST Tel , Service support , D/C Instructions Discharge Diet: No restrictions Weight Bearing Status: Weight bearing as tolerated Call your doctor if you observe: Fever of 101 or Higher, Numbness or Tingling, Shortness of breath, Dizziness, Chest pain, Increased palpitations (irregular heartbeat) and Calf discomfort Please Follow Up With: Primary care provider When: Within the next two weeks. Meaningful Use Info Meaningful Use Diagnoses (Choose all that apply): None applicable Discharge Plan Admission Admit Date/Time: 07/24/21 20:15 Primary Reason for Your Visit: Stroke like symptoms. Attending Provider: Veena Martinez Primary Care Provider: Declan Curry Discharge Orders/Prescriptions Prescriptions: New atorvastatin [Lipitor] 80 mg tablet 80 mg PO QHS Qty: 30 RF: 0 clopidogrel [Plavix] 75 mg tablet 75 mg PO DAILY Qty: 30 RF: 0 Continued pantoprazole 40 MG tablet 40 mg PO DAILY RF: 0 ferrous sulfate [Iron (ferrous sulfate)] 325 MG tablet 325 mg PO DAILY RF: 0 lisinopril 5 MG tablet 5 mg PO DAILY RF: 0 cholecalciferol (vitamin D3) 5,000 UNIT capsule 5,000 unit PO DAILY RF: 0 loratadine 10 MG tablet 10 mg PO QHS RF: 0 glipizide 5 MG tablet 5 mg PO DAILY RF: 0 levothyroxine 112 MCG tablet 112 mcg PO DAILY RF: 0 Lantus Solostar U-100 Insulin 100 UNITS/ML insulin pen 36 units subcut QHS RF: 0 Janumet XR 1 EACH tablet, ER multiphase 24 hr 1 tab PO DAILY RF: 0 aspirin 81 MG tablet 81 mg PO DAILY@0800 Qty: 0 RF: 0 Discontinued simvastatin 20 MG tablet 20 mg PO QHS RF: 0 Other Ambulatory Orders: 30-Day Event Recorder (Routine) Location: None Selected Ordered By: Chago REED Referrals / Follow Up: Hudson Bear MD [STAFF PHYSICIAN] - See Referral Note (Follow up with Dr. Bear for your event monitor results. ) Declan Curry MD [Primary Care Provider] - Within 2 Weeks Disposition Disposition (needs filled in before D/C Order can be placed): Home, Self Care Documented by User: Dr. Veena Martinez DO 07/25/21 14:43 Providers Date of Admission: 07/24/21 Reason For Visit: TIA Medications at Discharge Home Medications Janumet XR 1 tab PO DAILY 09/21/16 Lantus Solostar U-100 Insulin 36 units SUBCUT QHS 09/21/16 cholecalciferol (vitamin D3) 5,000 unit PO DAILY 09/21/16 ferrous sulfate [Iron (ferrous sulfate)] 325 mg PO DAILY 09/21/16 glipizide 5 mg PO DAILY 09/21/16 levothyroxine 112 mcg PO DAILY 09/21/16 lisinopril 5 mg PO DAILY 09/21/16 loratadine 10 mg PO QHS 09/21/16 pantoprazole 40 mg PO DAILY 09/21/16 aspirin 81 mg PO DAILY@0800 #0 tab 07/25/21 atorvastatin [Lipitor] 80 mg PO QHS #30 tab 07/25/21 clopidogrel [Plavix] 75 mg PO DAILY #30 tab 07/25/21 Hospital Course Procedures 2-D Echocardiogram and - (MRI brain/MRA head and neck) Summary of Care Provided Minutes Spent on Discharge: 33 Hospital Course: Mrs. Sarkar is a 71-year-old white female who presented to the emergency department was [facility] on 07/24/2021 with slurred speech and facial droop that started approximately 1 hour 15 minutes prior to presentation. She has a past medical history of hypertension and diabetes as well as hypothyroidism. Her episode lasted for approximately 10 to 15 minutes and then resolve spontaneously. Upon presentation her NIH was 0 but given her symptoms and comorbidities it was felt prudent to admit her for TIA work-up. A CT was done in the emergency department showed no acute intracranial findings. Her labs were overall unremarkable upon presentation other than hyperglycemia and stable CKD. Her lipids were obtained and showed a total cholesterol 134/LDL 62/HDL 47/triglycerides 124 and her hemoglobin A1c was obtained and found to be 9.3. An echocardiogram was performed and showed a normal EF with ejection fraction at 55 to 60%, grade 1 diastolic dysfunction and trivial MR with a negative bubble study. An MRI of her brain was performed and showed chronic involutional changes of the brain but no acute infarct. The MRA of her head and neck were normal. She was seen by [facility] neurology via teleconsult and recommendations were for improved hemoglobin A1c control, dual antiplatelet therapy with aspirin and Plavix for 3 weeks and at that time discontinuation of aspirin and continuation of Plavix, and an outpatient event monitor. She was given prescriptions for Plavix and an outpatient event monitor was ordered with [place] to follow-up. Her NIH remained stable at 0 throughout her entire hospitalization and she had no recurrent events. With regards to her hemoglobin A1c being 9.3, she is current being managed with oral agents including Janumet ER and glipizide, as well as Lantus 36 units at at bedtime. We recommended follow-up with her primary care physician in order to obtain a better controlled hemoglobin A1c. In the meantime we did review a diabetic diet with her and encourage strict adherence. She was discharged home in stable condition on 07/25/2021. Discharge diagnoses: TIA DM-2 uncontrolled Hypertension Hyperlipidemia Hypothyroidism GERD Stage I diastolic dysfunction CKD stage IIIb Physical Exam Const alert, oriented x3, no apparent distress and average body habitus Constitutional Narrative: Upper middle-aged white female sitting up in a chair at the bedside, her is currently at the bedside as well, patient appears well, nontoxic General Appearance: cooperative, comfortable, well kempt and well developed Orientation / Consciousness: awake Exam Limitations: no limitations Nutritional Appearance: overweight HEENT normocephalic, head/scalp atraumatic, hearing grossly normal bilaterally and moist oral mucous membranes HEENT Narrative: Mallampati 2, no thrush, dentures in place Eyes PERRL, EOMs intact bilaterally and conjunctivae normal Eyes Narrative: No scleral icterus Neck no lymphadenopathy, supple and no JVD Neck Narrative: Trachea midline, no thyroid enlargement Resp normal respiratory effort, no retractions, no use of accessory muscles and clear to auscultation bilaterally Auscultation: Negative for crackles, rales, rhonchi or wheezes Cardio regular rate, regular rhythm, S1 normal heart sound, S2 normal heart sound, no murmurs, no rub, no gallops, no clicks and no JVD GI normal to inspection, nondistended, normoactive bowel sounds, soft to palpation, non-tender and non-distended; Negative for hepatosplenomegaly Extremity no clubbing, cyanosis or edema Skin no rashes or lesions noted, no wounds, skin turgor normal and no jaundice Neuro oriented x3, CN's II-XII intact bilaterally, moves all extremities and no focal motor deficits Neuro Narrative: Mild general weakness but no focal deficits Sensorium / Orientation: awake and alert Speech: speech normal Psych affect normal ABG / Lab / Microbiology Data Result Diagrams: 07/25/21 05:50 07/25/21 05:50 Discharge Plan Admission Admit Date/Time: 07/24/21 20:15 Primary Reason for Your Visit: Stroke like symptoms. Attending Provider: Veena Martinez Primary Care Provider: Declan Curry Discharge Orders/Prescriptions Prescriptions: New atorvastatin [Lipitor] 80 mg tablet 80 mg PO QHS Qty: 30 RF: 0 clopidogrel [Plavix] 75 mg tablet 75 mg PO DAILY Qty: 30 RF: 0 Continued pantoprazole 40 MG tablet 40 mg PO DAILY RF: 0 ferrous sulfate [Iron (ferrous sulfate)] 325 MG tablet 325 mg PO DAILY RF: 0 lisinopril 5 MG tablet 5 mg PO DAILY RF: 0 cholecalciferol (vitamin D3) 5,000 UNIT capsule 5,000 unit PO DAILY RF: 0 loratadine 10 MG tablet 10 mg PO QHS RF: 0 glipizide 5 MG tablet 5 mg PO DAILY RF: 0 levothyroxine 112 MCG tablet 112 mcg PO DAILY RF: 0 Lantus Solostar U-100 Insulin 100 UNITS/ML insulin pen 36 units subcut QHS RF: 0 Janumet XR 1 EACH tablet, ER multiphase 24 hr 1 tab PO DAILY RF: 0 aspirin 81 MG tablet 81 mg PO DAILY@0800 Qty: 0 RF: 0 Discontinued simvastatin 20 MG tablet 20 mg PO QHS RF: 0 Other Ambulatory Orders: 30-Day Event Recorder (Routine) Location: None Selected Ordered By: Chago REED Referrals / Follow Up: Hudson Bear MD [STAFF PHYSICIAN] - See Referral Note (Follow up with Dr. Bear for your event monitor results. ) Declan Curry MD [Primary Care Provider] - Within 2 Weeks Disposition Disposition (needs filled in before D/C Order can be placed): Home, Self Care Charges/Coding Visit Charges Inpatient E&M: 56868 Disch Hosp
== END 2021-07-25 11:25 | disposition home or self-care (01) ==
LOC: ED 19:35 → PCU 20:29
PROVIDERS: Admitting Provider Hospitalist; Emergency Provider Emergency Medicine; PCP Family Medicine; Visit Provider Internal Medicine
DX: G45.9 Transient cerebral ischemic attack, unspecified (principal); R29.810 Facial weakness; F80.2 Mixed receptive-expressive language disorder; E03.9 Hypothyroidism, unspecified; K21.9 Gastro-esophageal reflux disease without esophagitis; R29.700 NIHSS score 0; E78.5 Hyperlipidemia, unspecified; E11.22 Type 2 diabetes mellitus with diabetic chronic kidney disease; I12.9 Hypertensive chronic kidney disease with stage 1 through stage 4 chronic kidney disease, or unspecified chronic kidney disease; N18.32 Chronic kidney disease, stage 3b; Z79.82 Long term (current) use of aspirin; Z79.4 Long term (current) use of insulin; Z79.899 Other long term (current) drug therapy; Z79.890 Hormone replacement therapy
CPT/HCPCS: 36415; 70450; 70544; 70547; 70551; 80048; 80053; 80061; 82962; 83036; 85025; 85610; 85730; 93005; 93306; 94002; 97166; 99218; 99285; Q9957; A4216; G0378

== ENCOUNTER → 2022-03-11 | Outpatient (CLI) | payer MEDICARE, BC, SELFPAY ==
[2022-03-11 12:51] LABS: CRP < 2.90 mg/L (0.0-3.0); T4 Total, Thyroxin 12.7 ug/dL (4.8-13.9); Thyroid Stim Hormone (TSH) 1.14 uIU/mL (0.358-3.74)
[2022-03-12 15:08] LABS: Endomysial Antibody IgA Negative (Negative)
[2022-03-12 15:47] LABS: Immunoglobulin A 104 mg/dL (87-352); t-Transglutaminase IgA <2 U/mL (0-3)
== END | disposition home or self-care (01) ==
LOC: MTLAB 11:09
PROVIDERS: PCP Family Medicine; Referring Provider Internal Medicine Gastroenterology; Visit Provider Internal Medicine Gastroenterology
DX: R19.7 Diarrhea, unspecified (principal)
CPT/HCPCS: 36415; 82784; 83516; 84436; 84443; 86140; 86255

== ENCOUNTER → 2022-04-13 | Outpatient (CLI) | payer MEDICARE, BC, SELFPAY ==
--- NOTE | 2022-04-13 09:25 | RAD_ITS ---
STUDY: X-RAY - ABDOMEN/PELVIS REASON FOR EXAM: Female, 72 years old. 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 TECHNIQUE: Single AP view of the abdomen / pelvis. COMPARISON: None. FINDINGS: Residual fecal material is seen throughout the colon. The patient will be rescheduled for barium enema upon further colon cleansing. RAD/Abdomen Single View IMPRESSION: Residual fecal material is seen throughout the colon. Further bowel prep necessary. Electronically Signed: Yoni Nava MD at 10:30 EDT ,
== END | disposition home or self-care (01) ==
LOC: RAD 09:16
PROVIDERS: PCP Family Medicine; Referring Provider Internal Medicine Gastroenterology; Visit Provider Internal Medicine Gastroenterology
DX: R19.7 Diarrhea, unspecified (principal)
CPT/HCPCS: 74018

== ENCOUNTER 2022-04-27 09:05 | Outpatient (CLI) | payer MEDICARE, BC, SELFPAY ==
--- NOTE | 2022-04-27 09:10 | RAD_ITS ---
STUDY: X-RAY - ABDOMEN/PELVIS REASON FOR EXAM: Female, 72 years old. [employer] image for BE TECHNIQUE: Single AP view of the abdomen / pelvis. COMPARISON: None. FINDINGS: There is a moderate amount of colonic fecal material. The visualized liver, spleen and kidneys are grossly normal in size and morphology. Normal soft tissue structures. There are degenerative changes of the visualized lumbar spine. RAD/Abdomen Single View IMPRESSION: Moderate amount of residual fecal material is seen in the colon. Electronically Signed: Yoni Nava MD at 10:58 EDT ,
== END 2022-04-27 23:59 | disposition home or self-care (01) ==
LOC: RAD 09:07
PROVIDERS: PCP Family Medicine; Referring Provider Internal Medicine Gastroenterology; Visit Provider Internal Medicine Gastroenterology
DX: K56.41 Fecal impaction (principal)
CPT/HCPCS: 74018

== ENCOUNTER 2022-06-03 11:04 | Inpatient (IN) | payer MEDICARE, BC, SELFPAY ==
[2022-06-03] VITALS (11 sets, daily range): BP systolic 107–161; BP diastolic 51–78; PULSE 64–80; RESP 14–20; TEMP 36.3–37.2; O2SAT 97–100; BMI 28.1; BMI 27.8
--- NOTE | 2022-06-03 11:27 | EKG12_ITS ---
Test Reason : SYNCOPE Blood Pressure : / mmHG Vent. Rate : 064 BPM Atrial Rate : 064 BPM P-R Int : 138 ms QRS Dur : 078 ms QT Int : 404 ms P-R-T Axes : 056 036 040 degrees QTc Int : 416 ms Normal sinus rhythm Normal ECG Confirmed by CAMILO NAGY, ANGIE ([id number]), mapping editor BARB FREEMAN ([id number]) on 06/08/2022 9:30:51 AM Referred By: Confirmed By:ANGIE PAGE MD
--- NOTE | 2022-06-03 11:28 | EDS_ITS ---
HPI History of Present Illness Chief Complaint: Syncope Informant: patient Narrative Narrative: 72-year-old female presenting to the emergency room with a syncopal episode. The patient states that this year she has lost about 15 pounds. She states that she does not have much appetite went to have a colonoscopy which was difficult and it would not solve any of her answers. The patient reports that today she was standing in her kitchen following a shower and states that her vision went dark and she found herself on the ground. believes she fully passed out she is not so sure. Was noted that she was pale and sweaty. She had no chest pain or palpitations or discomfort prior to the event. She recently was taken off of her insulin due to the weight loss and low hemoglobin A1c. She did not sustain any pain following the fall. [facility] Medical History BP (high blood pressure) Brain TIA Chronic kidney insufficiency Diabetes Hypertension Hypothyroidism Home Medications cholecalciferol (vitamin D3) 125 mcg (5,000 unit) capsule 5,000 unit PO DAILY 09/21/16 [History Last Taken Unknown] ferrous sulfate 325 mg (65 mg iron) tablet (Iron (ferrous sulfate)) 325 mg PO DAILY 09/21/16 [History Last Taken Unknown] glipizide 5 mg tablet 5 mg PO DAILY 09/21/16 [History Last Taken Unknown] insulin glargine 100 unit/mL (3 mL) subcutaneous pen (Lantus Solostar U-100 Insulin) 36 units subcut QHS 09/21/16 [History Last Taken Unknown] levothyroxine 112 mcg tablet 112 mcg PO DAILY 09/21/16 [History Last Taken Unknown] lisinopril 5 mg tablet 5 mg PO DAILY 09/21/16 [History Last Taken Unknown] loratadine 10 mg tablet 10 mg PO QHS 09/21/16 [History Last Taken Unknown] pantoprazole 40 mg tablet,delayed release 40 mg PO DAILY 09/21/16 [History Last Taken Unknown] sitagliptin 50 mg-metformin ER 1,000 mg tablet,extended release 24h mp (Janumet XR) 1 tab PO DAILY 09/21/16 [History Last Taken Unknown] aspirin 81 mg tablet,delayed release 81 mg PO DAILY@0800 #0 tabs 07/25/21 [Rx Last Taken Unknown] atorvastatin 80 mg tablet (Lipitor) 80 mg PO QHS #30 tabs 07/25/21 [Rx Last Taken Unknown] clopidogrel 75 mg tablet (Plavix) 75 mg PO DAILY #30 tabs 07/25/21 [Rx Last Taken Unknown] Allergy/AdvReac Type Severity Reaction Status Date / Time No Known Allergies Allergy Verified 06/03/22 11:05 Family History Mother Diabetes Mother Heart disease Father Cancer Surgical History H/O lumpectomy H/O: hysterectomy Hx of appendectomy Social History household members: spouse Smoking Status: Never smoker substance use type: does not use ROS ROS ED Constitutional Constitutional ED: Reports weight loss and other Details: Generalized fatigue ; Denies chills Eyes Eyes: Denies change in vision or diplopia ENT ENT ED: Denies ear pain, rhinorrhea or sore throat Cardiovascular Cardiovascular: Reports other Details: Syncope ; Denies chest pain, orthopnea, palpitations or racing heartbeat Respiratory/Chest Respiratory/Chest: Denies cough, dyspnea or orthopnea Gastrointestinal Gastrointestinal: Denies abdominal pain, constipation, diarrhea, nausea or vomiting Genitourinary Genitourinary ED: Denies dysuria, hematuria or urinary frequency Musculoskeletal Musculoskeletal: Denies arthralgias, back pain, myalgias or neck pain Integumentary Denies abscess or rash Neurologic Neurologic: Denies headache(s) or weakness Psychiatric Psychiatric: Denies anxiety, depression, suicidal ideation or suicidal thoughts Endocrine Endocrinology: Denies polydipsia, polyphagia or polyuria Allergic/Immunologic Allergic/Immunologic ED: Denies mouth swelling, tongue swelling or urticaria EXAM Physical Exam Const Vital Signs: 06/03/22 11:05 06/03/22 11:39 06/03/22 11:39 Temperature 98.1 F Temperature Source Temporal Pulse Rate 80 64 Respiratory Rate 14 20 H Respiratory Pattern Normal Blood Pressure 156/51 H Blood Pressure Mean 86 Pulse Ox 100 98 Oxygen Delivery Method Room Air Room Air MDM MDM MDM Narrative Medical decision making narrative: It has been almost 1 year since her last set of labs here at the hospital. I called her doctor's office who unfortunately does not have a recent CBC or BMP. Patient noted to have some mild pancytopenia with a white count 3.9 hemoglobin 9.6 and platelet count of 149. Creatinine is substantially elevated at 3.07 with a BUN of 41. Magnesium 1.5. Troponin of 11. TSH 0.96. My interpretation of the chest x-ray is no acute process. She has had no events on the monitor. Patient has had unexplained weight loss with syncope and now renal failure. Plan will be admission into hospital for further evaluation. Lab Data Attestation: I reviewed the patient's lab results. Labs: Laboratory Results - last 24 hr 06/03/22 06/03/22 11:45 11:45 WBC 3.9 L RBC 3.27 L Hgb 9.6 L Hct 30.5 L MCV 93.3 MCH 29.4 MCHC 31.5 L RDW Std Deviation 43.2 RDW Coeff of Concetta 12.6 Plt Count 149 L MPV 12.8 H Immature Gran % (Auto) 0.300 Neut % (Auto) 75.6 H Lymph % (Auto) 15.4 L [place] % (Auto) 6.4 Eos % (Auto) 1.5 Baso % (Auto) 0.8 Absolute Neuts (auto) 3.0 Absolute Lymphs (auto) 0.60 L Nucleated RBC % 0 Differential Comment Diff Path Review May foll Platelet Estimate ADEQUATE RBC Morphology N CHROM Acanthocytes (Spur) 1+ Sodium 140 Potassium 4.8 Chloride 106 Carbon Dioxide 24.0 Anion Gap 10 BUN 41 H Creatinine 3.07 H Estim Creat Clear Calc 14.11 Est GFR (MDRD) Af Amer 19 L Est GFR (MDRD) Non-Af 16 L BUN/Creatinine Ratio 13.4 Glucose 281 H Calcium 9.0 Magnesium 1.5 L Total Bilirubin 0.50 AST 19 ALT 24 Alkaline Phosphatase 103 Troponin I High Sens 11 Total Protein 6.5 Albumin 3.5 Globulin 3.0 Albumin/Globulin Ratio 1.2 TSH 0.96 Radiography Diagnostic Testing: Clinical Impression(s) from Imaging Studies Chest X-Ray 06/03/22 11:55 IMPRESSION: No acute pulmonary process Electronically Signed: Jose Guadalupe Anaya MD at 12:09 EDT , EKG Initial EKG: Attestation: I personally reviewed and interpreted this EKG as follows: Comments: Normal sinus him with a ventricular rate of 64 bpm. Prior: Changed Discharge Plan Dx/Rx/DC Orders Clinical Impression: Syncope and collapse, Abnormal weight loss, Hypertension, Hypercholesterolemia, Hypomagnesemia, Acute renal failure Disposition Disposition: Acute Care Hospital [facility]
[2022-06-03] MEDS: 0.9% Normal Saline 1,000 ML 1000 ML IV (11:49)
--- NOTE | 2022-06-03 11:55 | RAD_ITS ---
STUDY: X-RAY CHEST REASON FOR EXAM: Female, 72 years old. syncope TECHNIQUE: Single AP portable view of the chest. COMPARISON: None. FINDINGS: EKG leads overlie the chest The lungs are clear and expanded. There is no demonstrated pleural abnormality. Normal size heart. Normal mediastinum and melvin. Normal visualized pulmonary arteries. There is atherosclerotic calcification of the aortic arch with tortuosity. There are diffuse degenerative changes of the visualized thoracic spine. Normal visualized ribs, clavicles, and shoulders. There is no demonstrated abnormality of the visualized soft tissue structures of the upper abdomen. RAD/Chest 1 View (Portable) IMPRESSION: No acute pulmonary process Electronically Signed: Jose Guadalupe Anaya MD at 12:09 EDT ,
[2022-06-03 12:00] LABS: Basophil# 0.03 X10^3/uL; Basophil% 0.8 % (0-1); Eosinophil# 0.06 X10^3/uL; Eosinophils% 1.5 % (0-5); Hematocrit 30.5 % (37-47); Hemoglobin 9.6 g/dL (12.0-15.0); Lymphocyte % 15.4 % (19-41); Mean Corp Hgb Conc 31.5 g/dL (32-36); Mean Corpuscular Hgb 29.4 pg (27.0-32.0); Mean Corpuscular Volume 93.3 fL (81-99); Mean Platelet Vol. 12.8 fl (6.2-12.0); Monocyte# 0.25 X10^3/uL; Monocyte% 6.4 % (0-10); NRBC Flagged by Analyzer 0 % (0-5); Neutrophil # 2.95 X10^3/uL (2.7-7.7); Neutrophil % 75.6 % (47-70); POSITIVE DIFFERENTIAL YES; Platelet Count 149 K/mm3 (150-450); RBC Distribution Width CV 12.6 % (11.6-14.6); RBC Distribution Width SD 43.2 fl (35.1-43.9); Red Blood Count 3.27 M/mm3 (4.2-5.4); White Blood Count 3.9 K/mm3 (4.4-11.0)
[2022-06-03 12:02] LABS: Differential Indicated SCAN CRITERIA MET
[2022-06-03 12:22] LABS: Acanthocytes 1+; Platelet Estimate ADEQUATE (ADEQ); Red Cell Morphology N CHROM NORMAL (NORM C&C)
[2022-06-03 12:29] LABS: ALB/GLOB Ratio 1.2 RATIO (0.9-2.4); AST(SGOT) 19 U/L (15-37); Alanine Aminotransfer ALT/SGPT 24 U/L (13-56); Albumin, Serum 3.5 g/dL (3.2-5.0); Alkaline Phosphatase 103 U/L (45-117); Anion Gap 10 (5-15); BUN 41 mg/dL (7-18); BUN/Creat Ratio 13.4 RATIO (10-20); Chloride 106 mmol/L (98-107); Creatinine, Serum 3.07 mg/dL (0.55-1.02); EST Glomerular Filtration Rate 16 mL/min (>60); Est Glom Filt Rate - Afr Amer 19 mL/min (>60); Estimated Creatinine Clearance 14.11 ml/min; Glucose 281 mg/dL (74-106); Magnesium 1.5 mg/dL (1.6-2.6); Potassium 4.8 mmol/L (3.5-5.1); Protein, Total 6.5 g/dL (6.4-8.2); Sodium Level 140 mmol/L (136-145); Thyroid Stim Hormone (TSH) 0.96 uIU/mL (0.358-3.74); Troponin-I HS 11 pg/mL (3.0-54.0)
--- NOTE | 2022-06-03 13:28 | PCM.HP.STD ---
[facility] - General General Date of Admission: 06/03/22 Date of Service: 06/03/22 Chief Complaint: Syncope, increased creatinine from baseline, loss of weight since August. HPI Narrative HARRY HILL, is a 72 F who came to ED after syncopal episode in the morning today. History taken from both patient and her near the bedside. She said she took shower in the morning without any issues and then came to counter and making list for grocery. Suddenly she felt nauseated, blurry vision and then passed out. Her was nearby and he held her therefore no fall and brought to the ground. As per , she was pale and sweaty. No chest pain/discomfort, shortness of breath, seizure-like features as per the . No fecal or urinary incontinence or tongue bite. Patient did not have fever or URI symptoms in the last 2 to 3 weeks. She has been losing weight since August 2021, states lost 27 pounds since August 16, 2021. She had colonoscopy done but was not complete due to poor colon prep and colon redundancy. After that, she had colon prep for 2 barium enema in April and is scheduled for CT colonoscopy on 03 [address] Bush. Patient also had lab work from 05/25/2022 showing A1c 6.6 and glucose 78. Her PCP took of the insulin as A1c was normal and she did not have much appetite with loss of weight. Twelve-lead EKG shows normal sinus rhythm 64 beats minute, QTC 416 ms. Previous EKG was similar sinus rhythm 65 beats on July 2021. Patient creatinine is increased from baseline and there is decrease in blood counts of all 3 cell lines, discussed in detail in assessment and plan [facility] Medical History BP (high blood pressure) Brain TIA Chronic kidney insufficiency Diabetes Hypertension Hypothyroidism Home Medications cholecalciferol (vitamin D3) 125 mcg (5,000 unit) capsule 5,000 unit PO DAILY 09/21/16 [History Last Taken Unknown] ferrous sulfate 325 mg (65 mg iron) tablet (Iron (ferrous sulfate)) 325 mg PO DAILY 09/21/16 [History Last Taken Unknown] glipizide 5 mg tablet 5 mg PO DAILY 09/21/16 [History Last Taken Unknown] levothyroxine 112 mcg tablet 112 mcg PO DAILY 09/21/16 [History Last Taken Unknown] lisinopril 5 mg tablet 5 mg PO DAILY 09/21/16 [History Last Taken Unknown] loratadine 10 mg tablet 10 mg PO QHS 09/21/16 [History Last Taken Unknown] pantoprazole 40 mg tablet,delayed release 40 mg PO DAILY 09/21/16 [History Last Taken Unknown] clopidogrel 75 mg tablet (Plavix) 75 mg PO DAILY #30 tabs 07/25/21 [Rx Last Taken Unknown] atorvastatin 80 mg tablet (Lipitor) 40 mg PO QHS 06/03/22 [History Last Taken 06/02/22] donepezil 10 mg tablet 10 mg PO QHS 06/03/22 [History Last Taken 06/02/22] sitagliptin 50 mg-metformin ER 1,000 mg tablet,extended release 24h mp (Janumet XR) 1 tab PO BID 06/03/22 [History Last Taken 06/03/22] Allergy/AdvReac Type Severity Reaction Status Date / Time No Known Allergies Allergy Verified 06/03/22 11:05 Family History Mother Diabetes Mother Heart disease Father Cancer Surgical History H/O lumpectomy H/O: hysterectomy Hx of appendectomy Social History household members: spouse Smoking Status: Never smoker substance use type: does not use ROS ROS Narrative Constitutional: Fatigue and weakness. Loss of weight. No fever. HEENT: Reports systems reviewed and no addt'l complaints, except as documented Respiratory/Chest: Denies chest pain, shortness of breath at rest or with exertion Gastrointestinal: Loss of appetite. Constipation. Denies coffee ground emesis, hematemesis or vomiting Genitourinary: Denies burning urination or new urinary tract symptoms Musculoskeletal: Denies joint pain and limited range of motion Neurologic: Denies seizure-like activity. No focal weakness. skin: No ulcer. No rash Endocrinology: Diabetes mellitus type 2. Reports systems reviewed and no addt'l complaints, except as documented Hematologic/Lymphatic: No recent low blood counts. Reports systems reviewed and no addt'l complaints, except as documented Rest 14 ROS are negative except as mentioned in HPI Vital Signs Vital Signs Vital Signs: 06/03/22 11:05 06/03/22 11:39 06/03/22 11:39 Temperature 98.1 F Temperature Source Temporal Pulse Rate 80 64 Respiratory Rate 14 20 H Respiratory Pattern Normal Blood Pressure 156/51 H Blood Pressure Mean 86 Pulse Ox 100 98 Oxygen Delivery Method Room Air Room Air Weight Weight: 158 lb 15.253 oz Body Mass Index (BMI) 28.1 Physical Exam Narrative General: Alert, Oriented x3, Cooperative HEENT: Atraumatic, PERRLA, EOMI, Normocephalic Oral: Oral mucosa dry. No Gingival or Mucosal Lesions/ Ulcerations Neck: Supple, No JVD, Negative Carotid Bruits Lungs: Air entry equal in bilateral lung bases. No crepitation/rhonchi Cardiovascular: Regular rate, Regular Rhythm, Normal S1, Normal S2, No murmurs Abdomen: Bowel Sounds Present, Soft, Non Tender, Non-Distended : No renal angle tenderness. No suprapubic tenderness. Extremities: No edema, Capillary Refill Less than 3 Seconds Skin: No rashes, No breakdown Musculoskeletal: No Tenderness to Palpation of Joints or Extremities Neurological: Cranial nerves II-XII grossly intact, DTR 2+/4 and Symmetrical, Neuro grossly intact Psych/Mental Status: Flat affect. Results Lab / Micro Data Result Diagrams: 06/03/22 11:45 06/03/22 11:45 Labs: Laboratory Results - last 24 hr 06/03/22 11:45: WBC 3.9 L, RBC 3.27 L, Hgb 9.6 L, Hct 30.5 L, MCV 93.3, MCH 29.4, MCHC 31.5 L, RDW Std Deviation 43.2, RDW Coeff of Concetta 12.6, Plt Count 149 L, MPV 12.8 H, Immature Gran % (Auto) 0.300, Neut % (Auto) 75.6 H, Lymph % (Auto) 15.4 L, [place] % (Auto) 6.4, Eos % (Auto) 1.5, Baso % (Auto) 0.8, Absolute Neuts (auto) 3.0, Absolute Lymphs (auto) 0.60 L, Nucleated RBC % 0, Differential Comment , Diff Path Review May foll, Platelet Estimate ADEQUATE, RBC Morphology N CHROM, Acanthocytes (Spur) 1+ 10/19/22 11:45: Sodium 140, Potassium 4.8, Chloride 106, Carbon Dioxide 24.0, Anion Gap 10, BUN 41 H, Creatinine 3.07 H, Estim Creat Clear Calc 14.11, Est GFR (MDRD) Af Amer 19 L, Est GFR (MDRD) Non-Af 16 L, BUN/Creatinine Ratio 13.4, Glucose 281 H, Calcium 9.0, Magnesium 1.5 L, Total Bilirubin 0.50, AST 19, ALT 24, Alkaline Phosphatase 103, Troponin I High Sens 11, Total Protein 6.5, Albumin 3.5, Globulin 3.0, Albumin/Globulin Ratio 1.2, TSH 0.96 Radiology Impression Chest X-Ray 06/03/22 11:55 IMPRESSION: No acute pulmonary process Electronically Signed: Jose Guadalupe Anaya MD at 12:09 EDT Reading Location ID and State: [address] [place] [address] , Service support , Assessment & Plan Assessment/Plan (1) Syncope and collapse: (2) Acute kidney injury superimposed on CKD: PLAN: Plan This is 72-year-old female is being admitted for syncope and acute kidney injury on CKD. 1. Syncope most likely vasovagal syncope: Patient denies any previous history of syncope. She is being admitted in PCU on telemetry.She had echo in 07/2021 reported normal EF, 55 to 60% no significant valvular abnormality. Mild grade 1 diastolic dysfunction sensitive of mild chronic HFpEF. IV fluid Ringer lactate is ordered. Monitor orthostatic blood pressure tomorrow a.m. Patient denies any history of hypotension or bradycardia. Twelve-lead EKG shows normal sinus rhythm 64 beats. QTc normal.Chest x-ray reported no acute pulmonary process. 2. Acute kidney injury, most likely prerenal from multiple colon prep solutions on CKD stage IIIb and hypomagnesemia: BUN/creatinine 41/3.07. In our system last BUN/creatinine on 08/04/2021 was 17/1.28. IV fluid Ringer lactate ordered. 2 g IV magnesium replacement ordered. Hold lisinopril. Monitor kidney function and electrolytes. Patient denies history of urine retention or motor dysfunction of bladder. If kidney function does not improve will need further work-up. 3. Mild pancytopenia with loss of weight rule out malignancy; being worked up as an outpatient: Patient previous lab work showed normal blood counts. Today WBC 3.9 thousand, ALC 0.6 thousand, ANC normal, H&H 9.6/30% and platelet count 149,000. Patient is following Dr. Bush to work-up for loss of weight to rule out malignancy. She has a scheduled CT colonography on 03 July 2021. She had colonoscopy in April and 2 barium enemas but was inconclusive probably because of poor colon prep and colon redundancy 4. Diabetes mellitus type 2: Patient recent A1c 6.6 on 05/25/2022 with glucose 78. Labs shows glucose 281. Hold Janumet and oral hypoglycemic agent due to NATALIE. Accu-Chek before meals and at bedtime and cover with Humalog sliding scale 5. Hypertension and hypothyroidism: Blood pressure is in normal range. Continue patient's levothyroxine dose. Patient had thyroid nodule on ultrasound and FNA on 12/22/2012, seen by Dr. Min Verdin. Pathology from left thyroid nodule reported atypical follicular cells of uncertain significance in background of chronic lymphocytic thyroiditis. Cyst pathology reported as benign colloid cyst content. 6. History of TIA: No acute focal neurological finding. Continue Plavix. VT prophylaxis, moderate risk: Heparin 5000 units subcu twice daily. Discontinue if platelet count drops less than 50,000 or hemoglobin less than 8 g%, moderate risk Laboratory Results 06/03/22 11:45: WBC 3.9 L, RBC 3.27 L, Hgb 9.6 L, Hct 30.5 L, MCV 93.3, MCH 29.4, MCHC 31.5 L, RDW Std Deviation 43.2, RDW Coeff of Concetta 12.6, Plt Count 149 L, MPV 12.8 H, Immature Gran % (Auto) 0.300, Neut % (Auto) 75.6 H, Lymph % (Auto) 15.4 L, [place] % (Auto) 6.4, Eos % (Auto) 1.5, Baso % (Auto) 0.8, Absolute Neuts (auto) 3.0, Absolute Lymphs (auto) 0.60 L, Nucleated RBC % 0, Differential Comment , Diff Path Review December foll, Platelet Estimate ADEQUATE, RBC Morphology N CHROM, Acanthocytes (Spur) 1+ 06/03/22 11:45: Sodium 140, Potassium 4.8, Chloride 106, Carbon Dioxide 24.0, Anion Gap 10, BUN 41 H, Creatinine 3.07 H, Estim Creat Clear Calc 14.11, Est GFR (MDRD) Af Amer 19 L, Est GFR (MDRD) Non-Af 16 L, BUN/Creatinine Ratio 13.4, Glucose 281 H, Calcium 9.0, Magnesium 1.5 L, Total Bilirubin 0.50, AST 19, ALT 24, Alkaline Phosphatase 103, Troponin I High Sens 11, Total Protein 6.5, Albumin 3.5, Globulin 3.0, Albumin/Globulin Ratio 1.2, TSH 0.96 Charges/Coding Visit Charges OBSV E&M: 73483 Initial observation care L3 Procedures Hospitalists Procedures: 81471 Advncd Care Plan 30 Min
[2022-06-03 14:36] LABS: Phosphorus 2.8 mg/dL (2.5-4.9)
[2022-06-03] MEDS: Lactated Ringers 1,000 ML 150 ML IV ×2 (15:25→21:46)
[2022-06-03] MEDS: Insulin Lispro 100 UNIT/ML INSULN.PEN SC ×2 (17:07→21:46)
[2022-06-03] MEDS: Insulin Glargine-YFGN 100 UNIT/ML Pen SC (17:07)
[2022-06-03] MEDS: Glucerna Shake 120 ML LIQUID PO (17:10)
[2022-06-03 17:31] LABS: Bedside Glucose 190 mg/dL (74-106)
[2022-06-03] MEDS: Ferrous Sulfate 325 MG Tablet PO (21:38)
[2022-06-03] MEDS: Heparin Injection (Vial) 5,000 UNIT/ML VIAL 5000 UNIT SC (21:38)
[2022-06-03] MEDS: Pantoprazole Sodium 40 MG Tablet PO (21:38)
[2022-06-03] MEDS: Donepezil HCl 10 MG Tablet PO (21:38)
[2022-06-03] MEDS: Atorvastatin Calcium 40 MG Tablet PO (21:38)
[2022-06-03] MEDS: Cholecalciferol (Vit D3) 125 MCG CAPSULE (5,000 UNITS) PO (21:51)
[2022-06-03 22:11] LABS: Bedside Glucose 196 mg/dL (74-106)
[2022-06-04] VITALS (12 sets, daily range): BP systolic 112–183; BP diastolic 56–80; PULSE 54–75; RESP 16–18; TEMP 36.2–37.1; O2SAT 94–99
[2022-06-04 06:01] LABS: Absolute Lymphocyte Count 1.21 X10^3/uL (0.83-4.51); Absolute Neutrophil Count 2.9 X10^3/uL (2.0-7.7); Basophil# 0.04 X10^3/uL; Basophil% 0.9 % (0-1); Eosinophils% 2.2 % (0-5); Hematocrit 26.9 % (37-47); Hemoglobin 8.5 g/dL (12.0-15.0); Lymphocyte # 1.21 X10^3/ul (0.83-4.51); Lymphocyte % 26.7 % (19-41); Mean Corp Hgb Conc 31.6 g/dL (32-36); Mean Corpuscular Hgb 29.3 pg (27.0-32.0); Mean Corpuscular Volume 92.8 fL (81-99); Mean Platelet Vol. 13.5 fl (6.2-12.0); Monocyte% 6.6 % (0-10); NRBC Flagged by Analyzer 0 % (0-5); Neutrophil # 2.86 X10^3/uL (2.7-7.7); Neutrophil % 63.2 % (47-70); Platelet Count 135 K/mm3 (150-450); RBC Distribution Width CV 12.5 % (11.6-14.6); RBC Distribution Width SD 42.4 fl (35.1-43.9); White Blood Count 4.5 K/mm3 (4.4-11.0)
[2022-06-04] MEDS: Levothyroxine 112 MCG Tablet PO (06:47)
[2022-06-04 07:01] LABS: Anion Gap 6 (5-15); BUN 35 mg/dL (7-18); BUN/Creat Ratio 13.5 RATIO (10-20); Calcium,Total 8.7 mg/dL (8.5-10.1); Chloride 111 mmol/L (98-107); EST Glomerular Filtration Rate 19 mL/min (>60); Est Glom Filt Rate - Afr Amer 23 mL/min (>60); Estimated Creatinine Clearance 16.65 ml/min; Glucose 135 mg/dL (74-106); Magnesium 2.2 mg/dL (1.6-2.6); Potassium 4.4 mmol/L (3.5-5.1); Sodium Level 142 mmol/L (136-145); Thyroid Stim Hormone (TSH) 0.44 uIU/mL (0.358-3.74)
[2022-06-04 07:10] LABS: Bedside Glucose 147 mg/dL (74-106)
[2022-06-04] MEDS: Senna/Docusate Sodium 1 Tablet 2 TABLET PO ×2 (09:31→21:17)
[2022-06-04] MEDS: Clopidogrel Bisulfate 75 MG Tablet PO (09:31)
[2022-06-04] MEDS: Psyllium 1 PACKET PO ×2 (09:31→21:17)
[2022-06-04] MEDS: Insulin Glargine-YFGN 100 UNIT/ML Pen SC (09:32)
[2022-06-04] MEDS: Heparin Injection (Vial) 5,000 UNIT/ML VIAL 5000 UNIT SC ×2 (09:32→21:17)
[2022-06-04] MEDS: Glucerna Shake 120 ML LIQUID PO (09:43)
[2022-06-04 09:52] LABS: Iron 52 ug/dL (50-170); Iron Binding Capacity,Total 235 ug/dL (250-450); T4 Free Direct 1.45 ng/dL (0.76-1.46)
[2022-06-04] MEDS: Insulin Lispro 100 UNIT/ML INSULN.PEN SC ×3 (12:05→21:17)
[2022-06-04 12:07] LABS: Pathologist Review Reviewed
[2022-06-04 12:25] LABS: Bedside Glucose 262 mg/dL (74-106)
--- NOTE | 2022-06-04 12:31 | PCM.PN.HOSP ---
Subjective Subjective DOS: 06/04/2022 CC: Poor appetite Ms. Sarkar reports feeling slightly better than yesterday though suboptimal appetite, did discuss her weight loss and her outpatient follow-up with this. Denies chest pain or shortness of breath, has not been lightheaded this time. Does report chronic diarrhea since first of the year but said that it is starting to improve, has not yet had a bowel movement today. Denies changes in her urination. Objective Data Objective Data Vital Signs: Vital Signs Temp Pulse Resp BP Pulse Ox O2 Del Method 97.6 F L 72 18 167/65 H 96 Room Air 06/04/22 09:24 06/04/22 11:05 06/04/22 09:24 06/04/22 10:45 06/04/22 09:24 06/04/22 09:30 Oxygen Delivery Method Room Air Weight: 72.4 kg Body Mass Index (BMI) 27.8 Intake & Output: Intake and Output for Last 24 Hours 06/02/22 06/03/22 06/04/22 23:59 23:59 23:59 Intake Total 2536.5 / 2536.5 1000 / 1000 Balance 2536.5 / 2536.5 1000 / 1000 Medical Nutrition Assessment Dietitian: Malnutrition Criteria Met Start: 06/03/22 15:12 Freq: Status: Active Protocol: Document 06/03/22 15:03 (Rec: 06/03/22 15:12 [id number]) Nutrition Malnutrition Evidence of Malnutrition Exists Yes Malnutrition (severe): Chronic Evidenced By Suboptimal Energy Intake ( Severe),Weight Loss (Severe) Clinical Problem Chronic Disease or Condition Related Malnutrition Etiology severe, chronic malnutrition r /t chronic diarrhea, decreased appetite Signs/Symptoms as evidenced by unintentional wt loss of 27#/15% x 9 months; estimated PO intake meeting < 75% of estimated energy needs > 3 months Status Active Problem Recommendation Dietitian Recommendations/Changes regular diet given signs/ symptoms of malnutrition; will add 120mL glucerna 4x/day w/ medpass for additional calories/protein if consumed. Will adjust diet pending PO intake, diet tolerance, and labs. Lab / Micro Data Result Diagrams: 06/04/22 04:31 06/04/22 04:31 Labs: Laboratory Results - last 24 hr 06/03/22 11:45: Diff Path Review Reviewed 06/03/22 11:45: Phosphorus 2.8 06/03/22 17:05: POC Glucose 190 H 06/03/22 21:42: POC Glucose 196 H 06/04/22 04:31: WBC 4.5, RBC 2.90 L, Hgb 8.5 L, Hct 26.9 L, MCV 92.8, MCH 29.3, MCHC 31.6 L, RDW Std Deviation 42.4, RDW Coeff of Concetta 12.5, Plt Count 135 L, MPV 13.5 H, Immature Gran % (Auto) 0.400, Neut % (Auto) 63.2, Lymph % (Auto) 26.7, [place] % (Auto) 6.6, Eos % (Auto) 2.2, Baso % (Auto) 0.9, Absolute Neuts (auto) 2.9, Absolute Lymphs (auto) 1.21, Nucleated RBC % 0 06/04/22 04:31: Sodium 142, Potassium 4.4, Chloride 111 H, Carbon Dioxide 25.0, Anion Gap 6, BUN 35 H, Creatinine 2.60 H, Estim Creat Clear Calc 16.65, Est GFR (MDRD) Af Amer 23 L, Est GFR (MDRD) Non-Af 19 L, BUN/Creatinine Ratio 13.5, Glucose 135 H, Calcium 8.7, Magnesium 2.2, TSH 0.44 06/04/22 04:31: Iron 52, TIBC 235 L, Free T4 1.45 06/04/22 06:46: POC Glucose 147 H 06/04/22 12:02: POC Glucose 262 H Physical Exam Const alert and no apparent distress Constitutional Narrative: Oriented HEENT normocephalic and head/scalp atraumatic Eyes Eyes Narrative: EOM grossly intact, anicteric Neck supple Resp normal respiratory effort and clear to auscultation bilaterally Cardio regular rate and regular rhythm GI soft to palpation, non-tender and non-distended Extremity Extremity Narrative: No edema appreciated Neuro moves all extremities Neuro Narrative: No overt focal deficits appreciated Psych Psych Narrative: Cooperative Assessment & Plan Assessment/Plan (1) Syncope and collapse: (2) Acute kidney injury superimposed on CKD: PLAN: Plan #Syncope -Did have prodrome, no seizure-like activity, no chest pain or discomfort. -Monitoring on telemetry - Chest x-ray no acute pulmonary process - Did have echo 07/2021 EF 55 to 60% with no significant valvular abnormalities and mild grade 1 diastolic dysfunction -Orthostatic vital signs negative #Normocytic anemia Hemoglobin on admission 9.6 today 8.5 Had incomplete colon prep with inconclusive colonoscopy Being worked up as an outpatient Will obtain iron studies Continue ferrous sulfate at this time #Acute kidney injury, prerenal Possibly due to multiple colon preps Has received IV fluids 3.07 on admission, improved slightly to 2.6, will reassess for further need for hydration Encourage p.o. Due to the significant acute kidney injury with only mild improvement, will monitor overnight and recheck labs in the morning to assess safety for discharge #Mild pancytopenia with weight loss Being worked up outpatient for malignancy Follow with #Type 2 diabetes mellitus A1c 6.6 on 05/25/2022. Janumet and oral hypoglycemic held due to NATALIE Sliding scale insulin and Accu-Cheks, also placed on 5 units of glargine #Hypothyroidism Continue levothyroxine TSH 0.44, will check free T4 #History of TIA Continue Plavix and atorvastatin Charges/Coding Visit Charges OBSV E&M: 95571 Subsequent observation care L2
[2022-06-04] MEDS: Lactated Ringers 1,000 ML 75 ML IV (16:10)
[2022-06-04 17:15] LABS: Bedside Glucose 272 mg/dL (74-106)
[2022-06-04] MEDS: Cholecalciferol (Vit D3) 125 MCG CAPSULE (5,000 UNITS) PO (21:17)
[2022-06-04] MEDS: Donepezil HCl 10 MG Tablet PO (21:17)
[2022-06-04] MEDS: Pantoprazole Sodium 40 MG Tablet PO (21:17)
[2022-06-04] MEDS: Atorvastatin Calcium 40 MG Tablet PO (21:17)
[2022-06-04] MEDS: Ferrous Sulfate 325 MG Tablet PO (21:17)
[2022-06-04 21:56] LABS: Bedside Glucose 223 mg/dL (74-106)
[2022-06-05 03:25] VITALS: BP 143/62; PULSE 52; PULSE 53; RESP 16; TEMP 36.1; O2SAT 98
[2022-06-05 06:06] LABS: Absolute Lymphocyte Count 1.39 X10^3/uL (0.83-4.51); Absolute Neutrophil Count 2.3 X10^3/uL (2.0-7.7); Basophil# 0.04 X10^3/uL; Eosinophil# 0.12 X10^3/uL; Hematocrit 28.7 % (37-47); Hemoglobin 9.1 g/dL (12.0-15.0); Lymphocyte # 1.39 X10^3/ul (0.83-4.51); Lymphocyte % 34.4 % (19-41); Mean Corp Hgb Conc 31.7 g/dL (32-36); Mean Corpuscular Hgb 29.4 pg (27.0-32.0); Mean Corpuscular Volume 92.9 fL (81-99); Mean Platelet Vol. 13.5 fl (6.2-12.0); Monocyte# 0.24 X10^3/uL; Monocyte% 5.9 % (0-10); NRBC Flagged by Analyzer 0 % (0-5); Neutrophil # 2.25 X10^3/uL (2.7-7.7); Neutrophil % 55.7 % (47-70); Platelet Count 133 K/mm3 (150-450); RBC Distribution Width CV 12.3 % (11.6-14.6); RBC Distribution Width SD 41.3 fl (35.1-43.9); Red Blood Count 3.09 M/mm3 (4.2-5.4)
[2022-06-05 06:48] LABS: ALB/GLOB Ratio 1.1 RATIO (0.9-2.4); AST(SGOT) 20 U/L (15-37); Alanine Aminotransfer ALT/SGPT 25 U/L (13-56); Albumin, Serum 3.3 g/dL (3.2-5.0); Alkaline Phosphatase 96 U/L (45-117); Anion Gap 8 (5-15); BUN 26 mg/dL (7-18); BUN/Creat Ratio 10.2 RATIO (10-20); Calcium,Total 8.9 mg/dL (8.5-10.1); Chloride 111 mmol/L (98-107); Creatinine, Serum 2.56 mg/dL (0.55-1.02); EST Glomerular Filtration Rate 20 mL/min (>60); Est Glom Filt Rate - Afr Amer 24 mL/min (>60); Estimated Creatinine Clearance 16.92 ml/min; Ferritin 85 ng/mL (8-252); Globulin 2.9 g/dL (2.2-4.2); Glucose 211 mg/dL (74-106); Protein, Total 6.2 g/dL (6.4-8.2); Sodium Level 144 mmol/L (136-145)
[2022-06-05 07:00] VITALS: PULSE 67
[2022-06-05] MEDS: Levothyroxine 112 MCG Tablet PO (07:05)
[2022-06-05] MEDS: Insulin Lispro 100 UNIT/ML INSULN.PEN SC ×2 (07:05→12:27)
[2022-06-05 07:26] LABS: Bedside Glucose 248 mg/dL (74-106)
[2022-06-05 07:42] LABS: Vitamin B12 350 pg/mL (211-911)
[2022-06-05] MEDS: LACTATED RINGERS 500 ML IV (08:12)
[2022-06-05] MEDS: Glucerna Shake 120 ML LIQUID PO (08:14)
[2022-06-05] MEDS: Psyllium 1 PACKET PO (08:15)
[2022-06-05] MEDS: Senna/Docusate Sodium 1 Tablet 2 TABLET PO (08:17)
[2022-06-05] MEDS: Clopidogrel Bisulfate 75 MG Tablet PO (08:17)
[2022-06-05] MEDS: Heparin Injection (Vial) 5,000 UNIT/ML VIAL 5000 UNIT SC (08:19)
[2022-06-05] MEDS: Insulin Glargine-YFGN 100 UNIT/ML Pen SC (08:22)
[2022-06-05 08:25] VITALS: BP 159/65; PULSE 66; RESP 18; TEMP 36.4; O2SAT 98
[2022-06-05 10:10] VITALS: O2SAT 96
--- NOTE | 2022-06-05 10:45 | DCINST_ITS ---
Discharge Instructions Diet Discharge Diet: No restrictions Activity Discharge Activity: Return to Normal Activity Follow Up Care Test Results: Test results from this visit will be discussed in further detail at your follow- up appointment, if applicable. Discharge Plan Admission Admit Date/Time: 06/04/22 14:59 Primary Reason for Your Visit: Episode of passing out Attending Provider: Briseida Kilpatrick Primary Care Provider: Declan Curry Consulting Providers: Thomas Espinoza Instructions Patient Instructions: Treating Syncope: Prevention Additional Instructions / Restrictions: *Please take this with you to your next doctors appointment* ?You were admitted for an episode of passing out, based on your history and lab studies it appeared it was due to dehydration. You improved after admission, would advise to continue adequate hydration ? You have expressed interest in a second opinion with our assistant offset press operator Dr. Eng. Contact information will be provided. Please call the office and inquire about scheduling for second opinion. ?You indicated you were taken off of insulin by her primary care physician. Your home medicine lists Janumet XR and glipizide. Given your kidney function your Janumet has been held, due to the blood sugars being high here however glipizide can be resumed with careful monitoring of your blood sugar. It will be important to continue to check your blood sugar at home and to call your primary care physician for any blood sugars less than 70 or glucose consistently over 180 prior to your appointment. ? Your lisinopril has also been held due to your kidney function. Your kidney function is improving and you are eating and drinking, it is reasonable to follow with your primary care physician as an outpatient to follow-up in regards to further monitoring and resumption of home medications ? Please call upon discharge to obtain follow-up lab work, recommend a BMP to monitor your kidney function in 3 days with close follow-up with your primary care physician ? After further discussion with you, would recommend daily MiraLAX to continue regular bowel movements. If you have any further diarrhea please contact the gastroenterology doctor or your primary care physician ?Additionally your memory medicine, donepezil, has been held as it can contribute to low heart rate and syncope. -Please call your primary care provider's office upon discharge to schedule a hospital follow up within 1 week. -For any concerning signs or symptoms please call 911 or proceed to the nearest emergency department Discharge Orders/Prescriptions Prescriptions: Continued pantoprazole 40 MG tablet 40 mg PO QHS ferrous sulfate [Iron (ferrous sulfate)] 325 MG tablet 325 mg PO QHS cholecalciferol (vitamin D3) 5,000 UNIT capsule 5,000 unit PO QHS loratadine 10 MG tablet 10 mg PO QHS glipizide 5 MG tablet 5 mg PO DAILY Label Comments: levothyroxine 112 MCG tablet 112 mcg PO DAILY Label Comments: clopidogrel [Plavix] 75 mg tablet 75 mg PO DAILY Qty: 30 0RF atorvastatin [Lipitor] 80 mg tablet 40 mg PO QHS Held lisinopril 5 MG tablet 5 mg PO QHS Hold Instructions: Resume on 06/10/22. Label Comments: donepezil 10 mg tablet 10 mg PO QHS Hold Instructions: Resume on 06/10/22. Janumet XR 50-1,000 mg tablet, ER multiphase 24 hr 1 tab PO BID Hold Instructions: Resume on 06/10/22. Hold until discussed with your primary care physician Referrals / Follow Up: Baron Eng DO [Med Staff - Active Staff] - (Please call the office upon discharge to schedule an appointment for second opinion) Declan Curry MD [Primary Care Provider] - Within 1 Week Disposition Disposition (needs filled in before D/C Order can be placed): Home, Self Care
[2022-06-05 11:00] VITALS: PULSE 70
--- NOTE | 2022-06-05 11:05 | CASEMGMT ---
RN CM Face to Face with patient for initial transition planning/care coordination assessment. RN CM introduced self and role at [facility]. Patient lying in bed, alert and oriented. Patient willing to participate in assessment and is able to answer all questions appropriately. Care providers, pharmacy, and demographics verified. Patient wishes to discharge home, denies need for home health at this time. Patient states she has no further needs or concerns at this time. CM to follow for discharge planning needs that may arise. PCP: Patricio Specialists: [facility] Pharmacy: [facility] Insurance: Trevor COY Prescription Benefit: yes Living Will/HPOA: yes, Vinny Sarkar LNOK: Living Arrangements: Patient lives with in a single story home with one step to enter. Patient states she is independent at home Transportation:self, DME/HHC: patient states she has raised toilet, cane, walker, and grab bars at home. Disposition Plan: Patient to discharge home with family support and follow-up plans in place. Amita SOW, RN, CM
[2022-06-05 11:55] LABS: Bedside Glucose 391 mg/dL (74-106)
[2022-06-05 12:12] VITALS: BP 159/65; PULSE 66; RESP 18; TEMP 36.4; O2SAT 98
--- NOTE | 2022-06-05 12:39 | DS.PCM_ITS ---
Providers Date of Admission: 06/04/22 Date of Discharge: 06/05/22 Primary Care Physician: Dr. Declan Curry MD Reason For Visit: SYNCOPE WITH NATALIE ON CKD Diagnosis Discharge Diagnosis (1) Syncope and collapse: Status: Acute Code(s): R55 - Syncope and collapse (2) Acute kidney injury superimposed on CKD: Status: Chronic Code(s): N17.9 - Acute kidney failure, unspecified; N18.9 - Chronic kidney disease, unspecified Plan #Syncope #Normocytic anemia #Acute kidney injury, prerenal #Mild pancytopenia with weight loss #Type 2 diabetes mellitus #Hypothyroidism #History of TIA Medications at Discharge Home Medications cholecalciferol (vitamin D3) 125 mcg (5,000 unit) capsule 5,000 unit PO QHS supplement 09/21/16 ferrous sulfate 325 mg (65 mg iron) tablet (Iron (ferrous sulfate)) 325 mg PO QHS supplement 09/21/16 glipizide 5 mg tablet 5 mg PO DAILY 09/21/16 levothyroxine 112 mcg tablet 112 mcg PO DAILY thyroid 09/21/16 lisinopril 5 mg tablet 5 mg PO QHS 09/21/16 loratadine 10 mg tablet 10 mg PO QHS allergies 09/21/16 pantoprazole 40 mg tablet,delayed release 40 mg PO QHS gerd 09/21/16 clopidogrel 75 mg tablet (Plavix) 75 mg PO DAILY #30 tabs 07/25/21 atorvastatin 80 mg tablet (Lipitor) 40 mg PO QHS 06/03/22 donepezil 10 mg tablet 10 mg PO QHS 06/03/22 sitagliptin phos 50 mg-metformin ER 1,000 mg tablet,extend rel 24h mp (Janumet XR) 1 tab PO BID 06/03/22 Hospital Course Summary of Care Provided Minutes Spent on Discharge: 35 Hospital Course: Ms. Sarkar is a 72-year-old female with a history of anemia currently being worked up and hypertension who presented to [facility] 06/03/2022 after simple episode. She has had 3 bowel preps recently and diarrhea and has had poor p.o. intake. She had went to the sink and stood there to make her grocery list when she began to feel lightheaded and fell to the ground and lost consciousness briefly. was nearby, no noted seizure- like activity. No bowel or bladder dysfunction and no significant confusion. She did not have chest pain or shortness of breath at the time, did not note any kind of palpitations. Orthostatic vital signs were negative, recent echo unremarkable, chest x-ray no acute pulmonary process. She felt much better after hydration on admission. Her episode was presumed to be due to dehydration, her kidney function baseline is 1.3 but on admission it was 3.07. She was hydrated and this did not improve. In regards to her syncope her QTC was okay with no abnormal rhythm noted there is no exertional component to this, echo unremarkable, did have a prodrome and despite orthostatic negative she was clinically dehydrated which was supported by the lab results. Likely orthostatic versus neurocardiogenic. Did also hold her donepezil due to concerns that it could cause bradycardia or contributory syncope. Of note also was not hypoglycemic on admission. Her kidney function improved with hydration that was now back to normal. Did discuss this and the importance of continued good p.o. intake as well as calling PCP to get a BMP and roughly 3 days to monitor kidney function. She did have very good p.o. intake while in the hospital and has not been having diarrhea and is not on a bowel prep so anticipate she will do better from a volume status. Ms. Sarkar and her did query a second opinion from GI for her anemia given that her GI physician has been unable to complete any exam on her colon and they are finding this frustrating. Did discuss with Dr. Eng about inpatient versus outpatient referral. Given the hemoglobin, while anemic, has been fairly stable do not feel that there is an acute blood loss component or any urgent need for inpatient evaluation. Information given to call to follow-up with Dr. Eng for second opinion on discharge if still desired. Instructions discussed with her and her at bedside and detailed instructions were handed to them. Discharge instructions that were provided as below: ?You were admitted for an episode of passing out, based on your history and lab studies it appeared it was due to dehydration.? You improved after admission, would advise to continue adequate hydration ? You have expressed interest in a second opinion with our optical glass etcher Dr. Eng.? Contact information will be provided.? Please call the office and inquire about scheduling for second opinion. ?You indicated you were taken off of insulin by her primary care physician.? Your home medicine lists Janumet XR and glipizide.? Given your kidney function your Janumet has been held, due to the blood sugars being high here however glipizide can be resumed with careful monitoring of your blood sugar.? It will be important to continue to check your blood sugar at home and to call your primary care physician for any blood sugars less than 70 or glucose consistently over 180 prior to your appointment. ? Your lisinopril has also been held due to your kidney function.? Your kidney function is improving and you are eating and drinking, it is reasonable to follow with your primary care physician as an outpatient to follow-up in regards to further monitoring and resumption of home medications ? Please call upon discharge to obtain follow-up lab work, recommend a BMP to monitor your kidney function in 3 days with close follow-up with your primary care physician ? After further discussion with you, would recommend daily MiraLAX to continue regular bowel movements.? If you have any further diarrhea please contact the gastroenterology doctor or your primary care physician ?Additionally your memory medicine, donepezil, has been held as it can c ontribute to low heart rate and syncope. -Please call your primary care provider's office upon discharge to schedule a hospital follow up within 1 week. -For any concerning signs or symptoms please call 911 or proceed to the nearest emergency department Physical Exam Const alert and no apparent distress Constitutional Narrative: Oriented HEENT normocephalic and head/scalp atraumatic Eyes Eyes Narrative: EOM grossly intact, anicteric Neck supple Resp normal respiratory effort and clear to auscultation bilaterally Cardio regular rate and regular rhythm GI soft to palpation, non-tender and non-distended Extremity Extremity Narrative: No edema appreciated Neuro moves all extremities Neuro Narrative: No overt focal deficits appreciated Psych Psych Narrative: Cooperative Medical Records Data Medical Nutrition Assessment Dietitian: Malnutrition Criteria Met Start: 06/03/22 15:12 Freq: Status: Active Protocol: Document 06/03/22 15:03 (Rec: 06/03/22 15:12 [id number]) Nutrition Malnutrition Evidence of Malnutrition Exists Yes Malnutrition (severe): Chronic Evidenced By Suboptimal Energy Intake ( Severe),Weight Loss (Severe) Clinical Problem Chronic Disease or Condition Related Malnutrition Etiology severe, chronic malnutrition r /t chronic diarrhea, decreased appetite Signs/Symptoms as evidenced by unintentional wt loss of 27#/15% x 9 months; estimated PO intake meeting < 75% of estimated energy needs > 3 months Status Active Problem Recommendation Dietitian Recommendations/Changes regular diet given signs/ symptoms of malnutrition; will add 120mL glucerna 4x/day w/ medpass for additional calories/protein if consumed. Will adjust diet pending PO intake, diet tolerance, and labs. Weight / BMI Weight Weight: 70.9 kg Body Mass Index (BMI) 27.8 ABG / Lab / Microbiology Data Result Diagrams: 06/05/22 05:00 06/05/22 05:00 Laboratory: Laboratory Results - last 24 hr 06/04/22 16:52: POC Glucose 272 H 06/04/22 21:14: POC Glucose 223 H 06/05/22 05:00: WBC 4.0 L, RBC 3.09 L, Hgb 9.1 L, Hct 28.7 L, MCV 92.9, MCH 29.4, MCHC 31.7 L, RDW Std Deviation 41.3, RDW Coeff of [place] 12.3, Plt Count 133 L, MPV 13.5 H, Immature Gran % (Auto) 0.000, Neut % (Auto) 55.7, Lymph % (Auto) 34.4, [place] % (Auto) 5.9, Eos % (Auto) 3.0, Baso % (Auto) 1.0, Absolute Neuts (auto) 2.3, Absolute Lymphs (auto) 1.39, Nucleated RBC % 0 06/05/22 05:00: Sodium 144, Potassium 4.0, Chloride 111 H, Carbon Dioxide 25.0, Anion Gap 8, BUN 26 H, Creatinine 2.56 H, Estim Creat Clear Calc 16.92, Est GFR (MDRD) Af Amer 24 L, Est GFR (MDRD) Non-Af 20 L, BUN/Creatinine Ratio 10.2, Glucose 211 H, Calcium 8.9, Ferritin 85, Total Bilirubin 0.40, AST 20, ALT 25, Alkaline Phosphatase 96, Total Protein 6.2 L, Albumin 3.3, Globulin 2.9, Albumin/Globulin Ratio 1.1, Folate 6.20 06/05/22 05:00: Vitamin B12 350 06/05/22 07:04: POC Glucose 248 H 06/05/22 11:27: POC Glucose 391 H D/C Instructions Discharge Diet: No restrictions Meaningful Use Info Meaningful Use Diagnoses (Choose all that apply): None applicable Discharge Plan Admission Admit Date/Time: 06/04/22 14:59 Primary Reason for Your Visit: Episode of passing out Attending Provider: Briseida Kilpatrick Primary Care Provider: Declan Curry Consulting Providers: Thomas Espinoza Instructions Patient Instructions: Treating Syncope: Prevention Additional Instructions / Restrictions: *Please take this with you to your next doctors appointment* ?You were admitted for an episode of passing out, based on your history and lab studies it appeared it was due to dehydration. You improved after admission, would advise to continue adequate hydration ? You have expressed interest in a second opinion with our optical glass etcher Dr. Eng. Contact information will be provided. Please call the office and inquire about scheduling for second opinion. ?You indicated you were taken off of insulin by her primary care physician. Your home medicine lists Janumet XR and glipizide. Given your kidney function your Janumet has been held, due to the blood sugars being high here however glipizide can be resumed with careful monitoring of your blood sugar. It will be important to continue to check your blood sugar at home and to call your primary care physician for any blood sugars less than 70 or glucose consistently over 180 prior to your appointment. ? Your lisinopril has also been held due to your kidney function. Your kidney function is improving and you are eating and drinking, it is reasonable to follow with your primary care physician as an outpatient to follow-up in regards to further monitoring and resumption of home medications ? Please call upon discharge to obtain follow-up lab work, recommend a BMP to monitor your kidney function in 3 days with close follow-up with your primary care physician ? After further discussion with you, would recommend daily MiraLAX to continue regular bowel movements. If you have any further diarrhea please contact the gastroenterology doctor or your primary care physician ?Additionally your memory medicine, donepezil, has been held as it can contribute to low heart rate and syncope. -Please call your primary care provider's office upon discharge to schedule a hospital follow up within 1 week. -For any concerning signs or symptoms please call 911 or proceed to the nearest emergency department Discharge Orders/Prescriptions Prescriptions: Continued pantoprazole 40 MG tablet 40 mg PO QHS ferrous sulfate [Iron (ferrous sulfate)] 325 MG tablet 325 mg PO QHS cholecalciferol (vitamin D3) 5,000 UNIT capsule 5,000 unit PO QHS loratadine 10 MG tablet 10 mg PO QHS glipizide 5 MG tablet 5 mg PO DAILY Label Comments: levothyroxine 112 MCG tablet 112 mcg PO DAILY Label Comments: clopidogrel [Plavix] 75 mg tablet 75 mg PO DAILY Qty: 30 0RF atorvastatin [Lipitor] 80 mg tablet 40 mg PO QHS Held lisinopril 5 MG tablet 5 mg PO QHS Hold Instructions: Resume on 06/10/22. Label Comments: donepezil 10 mg tablet 10 mg PO QHS Hold Instructions: Resume on 06/10/22. Janumet XR 50-1,000 mg tablet, ER multiphase 24 hr 1 tab PO BID Hold Instructions: Resume on 06/10/22. Hold until discussed with your primary care physician Referrals / Follow Up: aBron Eng DO [Med Staff - Active Staff] - (Please call the office upon discharge to schedule an appointment for second opinion) Declan Curry MD [Primary Care Provider] - Within 1 Week Disposition Disposition (needs filled in before D/C Order can be placed): Home, Self Care Charges/Coding Visit Charges Inpatient E&M: 82697 Subs Hosp L2
[2022-06-08 17:01] LABS: Vitamin D 1,25-Dihydroxy 46.4 pg/mL (24.8-81.5)
== END 2022-06-05 13:28 | disposition home or self-care (01) | DRG 682 ==
LOC: ED 13:27 → PCU 13:33
PROVIDERS: Admitting Provider Internal Medicine; Emergency Provider Emergency Medicine; PCP Family Medicine; Visit Provider Internal Medicine
DX: N17.9 Acute kidney failure, unspecified (principal); E43 Unspecified severe protein-calorie malnutrition; D61.818 Other pancytopenia; I13.0 Hypertensive heart and chronic kidney disease with heart failure and stage 1 through stage 4 chronic kidney disease, or unspecified chronic kidney disease; I50.32 Chronic diastolic (congestive) heart failure; E11.22 Type 2 diabetes mellitus with diabetic chronic kidney disease; N18.32 Chronic kidney disease, stage 3b; E11.65 Type 2 diabetes mellitus with hyperglycemia; E86.0 Dehydration; E03.9 Hypothyroidism, unspecified; E83.42 Hypomagnesemia; E78.00 Pure hypercholesterolemia, unspecified; R63.4 Abnormal weight loss; R55 Syncope and collapse; Z68.27 Body mass index [BMI] 27.0-27.9, adult; Z79.02 Long term (current) use of antithrombotics/antiplatelets; Z79.84 Long term (current) use of oral hypoglycemic drugs; Z79.899 Other long term (current) drug therapy; Z86.73 Personal history of transient ischemic attack (TIA), and cerebral infarction without residual deficits
CPT/HCPCS: 36415; 71045; 80048; 80053; 82607; 82652; 82728; 82746; 82962; 83540; 83550; 83735; 84100; 84439; 84443; 84484; 85025; 93005; 97161; 97166; 97530; 97802; 97803; 99285; J7030; J7120; A4216

== ENCOUNTER → 2022-06-10 | Outpatient (CLI) | payer MEDICARE, BC, SELFPAY ==
[2022-06-10 15:22] LABS: Anion Gap 9 (5-15); BUN 37 mg/dL (7-18); BUN/Creat Ratio 12.2 RATIO (10-20); Calcium,Total 9.3 mg/dL (8.5-10.1); Chloride 100 mmol/L (98-107); Creatinine, Serum 3.03 mg/dL (0.55-1.02); EST Glomerular Filtration Rate 16 mL/min (>60); Est Glom Filt Rate - Afr Amer 20 mL/min (>60); Glucose 468 mg/dL (74-106); Potassium 4.1 mmol/L (3.5-5.1); Sodium Level 134 mmol/L (136-145)
== END | disposition home or self-care (01) ==
LOC: BFHLAB 11:19
PROVIDERS: PCP Family Medicine; Visit Provider Family Medicine
DX: N18.30 Chronic kidney disease, stage 3 unspecified (principal)
CPT/HCPCS: 36415; 80048

== ENCOUNTER → 2022-06-22 | Outpatient (CLI) | payer MEDICARE, BC, SELFPAY ==
[2022-06-22 15:59] LABS: Anion Gap 10 (5-15); BUN 40 mg/dL (7-18); BUN/Creat Ratio 12.5 RATIO (10-20); Calcium,Total 9.8 mg/dL (8.5-10.1); Chloride 105 mmol/L (98-107); EST Glomerular Filtration Rate 15 mL/min (>60); Est Glom Filt Rate - Afr Amer 18 mL/min (>60); Glucose 362 mg/dL (74-106); Potassium 4.8 mmol/L (3.5-5.1); Sodium Level 135 mmol/L (136-145)
== END | disposition home or self-care (01) ==
LOC: BFHLAB 11:14
PROVIDERS: PCP Family Medicine; Visit Provider Family Medicine
DX: N17.9 Acute kidney failure, unspecified (principal)
CPT/HCPCS: 36415; 80048